=== PATIENT | female | born 1985 | race Caucasian/White ===

== ENCOUNTER → 2018-01-16 09:10 | Outpatient (CLI) | payer OTHER, MEDICAID, SELFPAY ==
--- NOTE | 2018-01-16 | DI.US.S_ITS ---
PROCEDURE: US OB <= 14 WEEKS FETUS INDICATIONS: DATES OUTSIDE/PRIOR DATING DATA: Last menstrual period (LMP): 11/21/17. LMP-based estimated date of delivery (GLORIA): 08/28/18. First dating scan (date and location): 01/16/18. Estimated date of delivery (GLORIA) from first dating scan: 09/02/18. TECHNIQUE: Real-time scanning was performed of the fetus and maternal pelvic organs, with image documentation. Endovaginal scanning was also performed to better visualize the fetus and maternal ovaries. COMPARISON: None. FINDINGS: Embryo: [place]-rump length measures 11 mm corresponding to 7 weeks 2 day. Embryonic heart rate measures 149 beats per minute. Measurement variability in dating: +/- 4 weeks by LMP, +/- 7 days by mean sac diameter (use before 6 weeks gestation if crown-rump length not able to be measured), +/- 5 days by crown-rump length (up to 8 weeks 6 days gestation), +/- 7 days by crown-rump length (up to 13 weeks 6 days gestation). Maternal organs: Ovaries within normal limits, with right corpus luteal cyst. Limited images through the kidneys demonstrate no hydronephrosis. IMPRESSION: 7 week 2 day single living IUP. Dictated by: Adolfo Camara RRA Interpreted: Leslye Suárez MD on 01/16/2018 at 10:21 Approved by: Leslye Suárez MD, PhD on 01/16/2018 at 11:54
== END ==
PROVIDERS: PCP Family Medicine; Visit Provider Family Medicine
DX: Z34.90 Encounter for supervision of normal pregnancy, unspecified, unspecified trimester (principal)
CPT/HCPCS: 76801; 76817

== ENCOUNTER 2018-03-27 10:54 | Inpatient (IN) | payer OTHER, MEDICAID, SELFPAY ==
[2018-03-27] MEDS: miSOPROStol 200 MCG TABLET 600 MCG VAG ×3 (12:04→21:35)
--- NOTE | 2018-03-27 12:14 | PM.HP.1 ---
History of Present Illness Date Patient Seen: 03/27/18 Time Patient Seen: 12:17 Chief complaint: demise Narrative: Patient is a 16 week demise. Patient had normal early without significant complications. Early ultrasounds looked normal. She had sequential screening which was unable to get adequate blood work and a [place] test which was borderline. Final diagnosis was trisomy 18. Better than not chance. While she was down discussing with [facility] ultrasound was done and found to be demise. Patient has had no bleeding no pain no leaking fluid no fevers chills or other change. Here for induction. Patient is previous . Past medical history depression anxiety. Past surgical history Social history y lives at home with daughter and new significant other. Habits occasional alcohol. No tobacco. Occasional marijuana. Review of systems otherwise negative Meds Home Medications Medication Instructions Recorded Confirmed Type ALBUTEROL SULFATE (Ventolin / 2 puff INH Q4H PRN #0 02/22/09 History Proventil) VIT#96/FERROUS FUM/FA 1 tab PO BID #0 10/16/12 History ( Vitamin) Allergies Allergy/AdvReac Type Severity Reaction Status Date / Time No Known Allergies Allergy Uncoded 07/10/17 11:47 Review of Systems Review of Systems All systems reviewed & are unremarkable except as noted in HPI and below Exam Vital Signs (past 8 hours): Alert female mildly sad appearance otherwise good eye contact. Lungs are clear. Heart regular rate and rhythm. Abdomen soft positive bowel sounds nontender. No heart tones. Extremities without cyanosis clubbing edema. Assessment & Plan Plan: Assessment/Plan Narrative: Sixteen week demise. Now 17 weeks with probable trisomy 18. Cytotec induction with an long discussions emotionally she seems to be doing okay right now will follow. OBGYN aware of situation and will be available to help if needed.
[2018-03-27 12:25] LABS: Add Manual Diff / Slide Review NO; Basophils Percent Auto 1.2 % (0-2); Eosinophils Percent Auto 10.2 % (2-4); Hematocrit 37.2 % (36-46); Hemoglobin 12.3 g/dL (12.0-16.0); Lymphocytes Percent Auto 29.3 % (25-40); Mean Corpuscular Volume 81.9 fL (80-100); Neutrophils Absolute Auto 3800 /uL (1500-7000); Neutrophils Percent Auto 52.3 % (50-75); Platelet Count 224 X10^3/uL (150-400); Red Blood Cell Count 4.55 X10^6/uL (4.0-5.2); Red Cell Distribution Width 12.9 % (11.6-14.8); White Blood Cell Count 7.3 X10^3/uL (4.5-11.0)
[2018-03-27 12:43] VITALS: BP 109/76
[2018-03-27] MEDS: LACTATED RINGERS 1,000 ML 100 ML IV (17:12)
--- NOTE | 2018-03-27 17:44 | PM.PN.1 ---
Subjective Date Patient Seen: 03/27/18 Time Patient Seen: 17:44 Interval history: Comfortable now. No other changes. Epidural is finally in. Difficulty picking up contractions. No other changes. Exam Vital Signs (past 8 hours): - 03/27/18 12:43 Blood Pressure 109/76 Narrative Exam Narrative: Alert female lying in bed no acute distress. Lungs are clear. Heart regular rate and rhythm. Abdomen is soft positive bowel sounds minimal tenderness. Sterile vaginal exam shows 50% closed high Objective Labs Result Diagrams: 03/27/18 11:05 Labs: Laboratory Results - last 24 hr 03/27/18 03/27/18 11:05 11:05 WBC 7.3 RBC 4.55 Hgb 12.3 Hct 37.2 MCV 81.9 MCH 27.0 MCHC 33.0 RDW 12.9 Plt Count 224 Neut % (Auto) 52.3 Lymph % (Auto) 29.3 [place] % (Auto) 7.0 Eos % (Auto) 10.2 H Baso % (Auto) 1.2 Neut # (Auto) 3800 Blood Type B Negative Antibody Screen Negative Assessment & Plan Plan: Assessment/Plan Narrative: Sixteen week demise. Continuing induction. Comfortable. No evidence of significant issue. Will follow closely. Recheck in 4 hr
[2018-03-27] MEDS: ONDANSETRON 4 MG/2 ML INJ IV (19:20)
[2018-03-27] MEDS: DEXTROSE 5%-LACTATED RINGERS 1,000 ML 125 ML IV (19:40)
[2018-03-27] MEDS: LORazepam 2 MG/ML SYRINGE 0.5 MG IV (22:39)
--- NOTE | 2018-03-28 | PATH_ITS ---
[facility] Accession Number: [id number] . 01 Material submitted: . RETAINED PRODUCTS OF CONCEPTION . 02 Diagnosis: Retained Products of Conception: Products of conception identified. V/04/03/2018 . 02 Electronically signed: . Alia Koch MD, Pathologist NPI- [id number] . 01 Gross description: . Received in formalin labeled with the patient's name and retained products of conception are multiple brown-serrato irregularly shaped soft tissues and blood, aggregating to 6.5 x 3.5 x 2.5 cm. Sectioning reveals spongy blood clot and purple spongy cut surfaces throughout. No parts are present. There are possible villous tissues present upon sectioning. Oracle Fusion Developer sections are submitted as A1 and A2. (SB:[id number]) /AMH . 02 Pathologist provided ICD-10: O73.1 . 02 CPT . 189326 Performed at: 01 [facility] [address] [facility], [place], [place] [id number] MD Jonathan Trujillo MD Phone: [phone] Performed at: 02 [facility] [address] [place], [place] [id number] MD Sylvia Waters MD Phone: [phone]
[2018-03-28] MEDS: miSOPROStol 100 MCG TABLET 600 MCG PO ×2 (02:00→06:01)
--- NOTE | 2018-03-28 08:24 | DI.US.S_ITS ---
PROCEDURE: US PELVIC LIMITED INDICATIONS: 16 week demise s/p delivery placental evaluation TECHNIQUE: Real-time transabdominal scanning was performed of the pelvic organs, with image documentation. COMPARISON: None. FINDINGS: Uterus: Uterus is normal in size at 4.8 x 5.8 x 11.0 cm. endometrial lining thickness is not effectively established due to echogenic material within the endometrial measuring up to 2.2 x 1.3 x 1.6 cm, consistent with retained products of conception and superimpos clot. Ovaries: The right ovary is normal in size measuring 1.8 x 2.4 x 3.1 cm and the left is not well-seen due to overlying bowel gas. Other: No free pelvic fluid. Limited scanning through the kidneys shows no hydronephrosis. IMPRESSION: Presumed retained products of conception within the endometrial space, in an area measuring up to 1.3 x 1.6 x 2.2 cm. Normal appearing right ovary, nonvisualization of the left ovary. No hemorrhagic peritoneal free fluid is suspected. Dictated by: Nick Erazo M.D. on 03/28/2018 at 10:10 Approved by: Nick Erazo M.D. on 03/28/2018 at 10:12
--- NOTE | 2018-03-28 08:31 | PM.PN.1 ---
Subjective Date Patient Seen: 03/28/18 Time Patient Seen: 08:31 Interval history: Having no patient seen in follow-up of demise. Patient with okay night. Emotionally stressed. Nauseated. No significant drying rack changer the night. No bleeding no leaking fluid no other change. That was noted. Exam Vital Signs (past 8 hours): Alert female in no acute distress crying in bed. Lungs are clear. Heart regular rate and rhythm. Abdomen is soft positive bowel sounds epidural in place sterile vaginal exam shows moderate amount of blood 1 cm cervix. No palpable mass. Shortly after check a bag with infant was delivered. No active bleeding. Objective Labs Result Diagrams: 03/27/18 11:05 Labs: Laboratory Results - last 24 hr 03/27/18 03/27/18 11:05 11:05 WBC 7.3 RBC 4.55 Hgb 12.3 Hct 37.2 MCV 81.9 MCH 27.0 MCHC 33.0 RDW 12.9 Plt Count 224 Neut % (Auto) 52.3 Lymph % (Auto) 29.3 [place] % (Auto) 7.0 Eos % (Auto) 10.2 H Baso % (Auto) 1.2 Neut # (Auto) 3800 Blood Type B Negative Antibody Screen Negative Assessment & Plan Plan: Assessment/Plan Narrative: Sixteen week demise. Appears to have passed infant with sac no placenta. Discussed with Dr. Mistry. Will send for genetic testing. Will start antibiotics. Will start Pitocin at 6 units and obtain ultrasound. If await hopefully will pass if not will need D&C. We will see what the ultrasound shows. Patient understands. Seems to be doing well.
--- NOTE | 2018-03-28 08:38 | PATH_ITS ---
[facility] Accession Number: [id number] . 01 Material submitted: . PRODUCTS OF CONCEPTION . 02 Diagnosis: Products of Conception: Male fetus by gross examination (weight 35 grams). [place]-rump length of 8.6 cm by gross examination, consistent with approximately 14.5 weeks gestational age. Poor tissue preservation limits microscopic examination. No definite inflammatory component identified in the membranes or cord tissue sections. MRV/04/03/2018 . 02 Electronically signed: . Alia Koch MD, Pathologist NPI- [id number] . 01 Gross description: . Received in formalin, labeled with the patient's name and products of conception, is a 45 g, 9.0 x 6.0 x 2.0 cm, discoid, purple-brown, glistening soft tissue. This tissue is grossly consistent with an intact gestational sac. The membranes are brown-serrato, thin, and translucent. Opening this reveals brown, watery fluid and a fetus. The fetus is 35 g. The fetus has the following measurements: [place]-rump length is 8.6 cm, and the crown-heel length is 11.8 cm. Each hand averages 1.0 cm in length and the feet average 1.1 cm in length. The skin is red-pink, dusky, with focal congestion around the head. The eyes and the mouth are shut. The membranes are focally adherent to the skin surfaces. Opening the mouth does not reveal a cleft palate. All 10 fingers and all 10 toes are present. At the abdomen is a 5.0 x 0.3 x 0.2 cm, serrato-pink, dusky umbilicus. Sectioning of the umbilical cord reveals an indeterminate amount of blood vessels due to its small diameter. The anus is patent. The external genitalia are male. The fetus is opened in a Y incision. Opening reveals all of the organs are in their correct anatomical locations. Many of the organs are autolyzed. Due to fact that the organs are autolyzed, the gonads cannot be grossly identified. Onshore Diver sections are submitted as follows: (A1) membranes and umbilical cord; (A2) advertising sales representative organs and a section through several of the organs. (SB:[id number]) (SB:[id number]) /FRR . 02 Pathologist provided ICD-10: O02.1 . 02 CPT . 307564 Performed at: 01 [facility] [address] [place] [address], [place], [place] [id number] MD Jonathan Trujillo MD Phone: [phone] Performed at: 02 [facility] [address] [place] [id number] MD Sylvia Waters MD Phone: [phone]
[2018-03-28] MEDS: OXYTOCIN PREMIX 30 UNIT/500 ML PLAST..BAG 6 UNIT IV (08:51)
[2018-03-28] MEDS: DEXTROSE 5%-LACTATED RINGERS 1,000 ML 125 ML IV ×2 (08:51→09:49)
[2018-03-28] MEDS: CEFOTETAN 2 GM/50 ML PIGGYBACK IV (09:16)
[2018-03-28] MEDS: ONDANSETRON 4 MG/2 ML INJ IV (09:59)
--- NOTE | 2018-03-28 13:36 | PM.PN.1 ---
Subjective Date Patient Seen: 03/28/18 Time Patient Seen: 13:36 Interval history: Ultrasound shows still with product of conception. No passing of any tissue. Moderate bleeding but no thin significant. Pain is well controlled with epidural. Pitocin has been running. No other changes. Exam Vital Signs (past 8 hours): Alert female no acute distress Lungs are clear. Heart regular rhythm. Abdomen is soft positive bowel sounds nontender. Objective Labs Result Diagrams: 03/27/18 11:05 Assessment & Plan Plan: Assessment/Plan Narrative: A 16 week intrauterine demise. Unable to extract placenta. Due to the amount of medication and emotional impact will proceed with D&C with Dr. Mistry appreciate his help. Discussed with patient risks expectations and outcomes. Hopefully will be able go home later today.
[2018-03-28 19:30] VITALS: BMI 34.1
[2018-03-28 19:35] VITALS: BP 128/78; PULSE 74; RESP 16; TEMP 36.6; O2SAT 96
[2018-03-28 19:37] VITALS: BMI 34.1
[2018-03-28 20:05] VITALS: BP 112/71; PULSE 80; RESP 20; TEMP 36.6; O2SAT 97
[2018-03-28] MEDS: RHO(D) IMMUNE GLOBULIN 1,500 UNIT SYRINGE 1500 UNIT IM (20:08)
--- NOTE | 2018-03-28 20:11 | SUR.OPER ---
Lithotomy on padded OR bed, head on pillow, arms secured on padded arm boards at <90 degrees abduction. Legs secured in padded yellow fins stirrups.
[2018-03-28 20:12] VITALS: BP 128/69; PULSE 76; RESP 12; O2SAT 98
[2018-03-28 20:15] VITALS: BP 118/78; PULSE 76; RESP 15; O2SAT 97
--- NOTE | 2018-03-28 20:17 | PM.GYNOP.1 ---
Operative Date/Time/Diagnoses Date of procedure: 03/28/18 Time of procedure: 20:17 Pre-op diagnosis: Incomplete /retained products of conception Post-op diagnosis: same Procedure: Procedures Operation Date: 03/28/18 18:30 Actual Procedures Side Surgeon p Dilation and Curettage Robby Mistry MD Indications: Retained products of conception Surgeon: Robby Mistry Anesthesia Type: General Operative Notes Closure Type: not applicable Specimen(s): endometrial curettings Estimated blood loss (mL): 25 Blood products transfused: none Procedure in detail: Patient was placed supine upon the operating table in S the ties. She was placed in the dorsal lithotomy position examined under anesthesia. Under anesthesia she was felt of an anterior uterus approximately 6-8 week size. Patient was then draped and prepared in the usual fashion. A posterior weighted retractor was then placed. The anterior lip of the cervix was grasped with a toothed tenaculum. The placenta was in the cervical os and removed with a ring forceps. Gentle curettage remainder of the endometrial cavity showed no remaining tissue. Complications: none Post-operative Condition: stable Disposition: PACU Plan for aftercare: 2 [place]
[2018-03-28 20:20] VITALS: BP 117/67; RESP 16; TEMP 36.8; O2SAT 99
== END 2018-03-28 20:45 | disposition home or self-care (01) | DRG 544 ==
PROVIDERS: Admitting Provider Family Medicine; Visit Provider Family Medicine
PROC: 10D17Z9 Manual Extraction of Products of Conception, Retained, Via Natural or Artificial Opening (ICD-10-PCS; CPT 58120; principal; 2018-03-28 18:30)
DX: O02.1 Missed abortion (principal); O03.4 Incomplete spontaneous abortion without complication
CPT/HCPCS: 01967; 59200; 76857; 85025; 86850; 86900; 86901; 88305; G0379; J2060; J2405; J2590; J2704; J2790; J3010; J7121; S0191

== ENCOUNTER → 2018-06-10 09:58 | Outpatient (CLI) | payer OTHER, MEDICAID, SELFPAY ==
--- NOTE | 2018-06-10 | DI.RAD.S_ITS ---
PROCEDURE: XR CHEST 2V INDICATIONS: COUGH TECHNIQUE: 2 views of the chest were acquired. COMPARISON: None. FINDINGS: Surgical changes and devices: None. Lungs and pleura: Lungs are clear. No pleural effusions or pneumothorax. Mediastinum: Mediastinal contours are normal. Heart size is normal. Bones and chest wall: No suspicious bony abnormalities. Soft tissues appear unremarkable. IMPRESSION: No acute disease Dictated by: Bob Valdez M.D. on 06/10/2018 at 11:27 Approved by: Bob Valdez M.D. on 06/10/2018 at 11:28
== END ==
PROVIDERS: PCP Family Medicine; Visit Provider Nurse Practitioner Family
DX: R05 Cough (principal); J45.901 Unspecified asthma with (acute) exacerbation
CPT/HCPCS: 71046

== ENCOUNTER → 2018-08-12 08:40 | Outpatient (CLI) | payer OTHER, MEDICAID, SELFPAY ==
--- NOTE | 2018-08-12 | DI.US.S_ITS ---
PROCEDURE: US OB <= 14 WEEKS FETUS INDICATIONS: INITIAL SIZING AND DATING OUTSIDE/PRIOR DATING DATA: Last menstrual period (LMP): 06/25/18. LMP-based estimated date of delivery (GLORIA): 04/01/19. First dating scan (date and location): 08/12/18, [facility]. Estimated date of delivery (GLORIA) from first dating scan: 04/02/19. TECHNIQUE: Real-time scanning was performed of the fetus and maternal pelvic organs, with image documentation. Endovaginal scanning was also performed to better visualize the fetus and maternal ovaries. COMPARISON: [facility], , OB <= 14 WEEKS FETUS, 01/16/2018, 9:46. FINDINGS: Embryo: A single live intrauterine is seen. The measured heart rate is 124 beats per minute. The crown-rump length measures 0.8 mm cm, corresponding to an estimated gestational age of 6 weeks 5 days. It is too early for detailed anatomic assessment. By visual inspection, the amount of amniotic fluid is within normal limits. No significant findings of subchorionic/perigestational hemorrhage are seen. Measurement variability in dating: +/- 4 weeks by LMP, +/- 7 days by mean sac diameter (use before 6 weeks gestation if crown-rump length not able to be measured), +/- 5 days by crown-rump length (up to 8 weeks 6 days gestation), +/- 7 days by crown-rump length (up to 13 weeks 6 days gestation). Maternal organs: The right ovary demonstrates a corpus luteum. The left ovary was not seen. IMPRESSION: A single live intrauterine is seen. No significant discrepancy is found between the estimated gestational age based on these images and the estimated gestational age based upon the given date of the last menstrual period. Dictated by: Floyd Mata M.D. on 08/12/2018 at 9:52 Approved by: Floyd Mata M.D. on 08/12/2018 at 9:55
== END ==
PROVIDERS: PCP Family Medicine; Visit Provider Family Medicine
DX: Z34.91 Encounter for supervision of normal pregnancy, unspecified, first trimester (principal); Z3A.01 Less than 8 weeks gestation of pregnancy
CPT/HCPCS: 76801; 76817

== ENCOUNTER 2018-08-15 10:59 | Observation (INO) | payer OTHER, MEDICAID, SELFPAY ==
[2018-08-15] MEDS: LACTATED RINGERS 1,000 ML 1000 ML IV ×2 (11:35→12:30)
[2018-08-15] MEDS: ONDANSETRON 4 MG/2 ML INJ IV (11:35)
--- NOTE | 2018-08-15 13:02 | PM.OBTRLD ---
Visit Information Visit Information Date of evaluation: 08/15/18 Primary OB Provider: Robby Stephenson Reason for Evaluation: Yes other Comments/Additional reasons for admission: Patient is 7 weeks and has had significant problems with hyperemesis gravidarum. Failed B12 and doxylamine, also outpatient Zofran. Not able to keep anything down. Decreased urinary output. Dizziness lightheaded. No bleeding. No other changes. PFSH Social History household members: significant other Smoking Status: Current some day smoker Social History household members: significant other Smoking Status: Current some day smoker Exam Narrative Exam Narrative: Alert fatigued female throwing up consistently throughout exam in no acute distress Diagnosis, Plan/Disposition Plan/Disposition Plan: Hyperemesis gravidarum. IV hydration IV Zofran will switch to Reglan she will call me tomorrow.
== END 2018-08-15 13:40 | disposition home or self-care (01) ==
PROVIDERS: Admitting Provider Family Medicine; PCP Family Medicine; Visit Provider Family Medicine
DX: O21.0 Mild hyperemesis gravidarum (principal); Z3A.01 Less than 8 weeks gestation of pregnancy
CPT/HCPCS: 96360; G0378; G0379; J2405

== ENCOUNTER 2018-09-09 17:38 | Emergency (ER) | payer OTHER, MEDICAID, SELFPAY ==
[2018-09-09 17:45] VITALS: BP 134/86; PULSE 93; RESP 14; TEMP 36.8; O2SAT 98
[2018-09-09] MEDS: SODIUM CHLORIDE 0.9% 1,000 ML 1000 ML IV ×2 (17:53→18:53)
[2018-09-09] MEDS: ONDANSETRON 4 MG/2 ML INJ IV (17:53)
[2018-09-09 17:55] LABS: Add Manual Diff / Slide Review NO; Basophils Absolute Auto 100 /uL (0-100); Basophils Percent Auto 0.6 % (0-2); Eosinophils Absolute Auto 300 /uL (0-450); Eosinophils Percent Auto 3.5 % (2-4); Hematocrit 36.2 % (36-46); Hemoglobin 12.5 g/dL (12.0-16.0); Lymphocytes Absolute Auto 2300 /uL (1100-4500); Lymphocytes Percent Auto 24.9 % (25-40); Mean Corpuscular HGB Conc 34.5 % (30-36); Mean Corpuscular Hemoglobin 27.4 PG (26-34); Mean Corpuscular Volume 79.4 fL (80-100); Monocytes Absolute Auto 400 /uL (0-900); Monocytes Percent Auto 4.8 % (3-14); Neutrophils Absolute Auto 6000 /uL (1500-7000); Neutrophils Percent Auto 66.2 % (50-75); Platelet Count 224 X10^3/uL (150-400); Red Blood Cell Count 4.56 X10^6/uL (4.0-5.2); Red Cell Distribution Width 14.2 % (11.6-14.8); White Blood Cell Count 9.1 X10^3/uL (4.5-11.0)
[2018-09-09 18:06] LABS: Blood Urea Nitrogen 9 mg/dL (7-17); Calcium 9.1 mg/dL (8.4-10.2); Carbon Dioxide 23 mmol/L (22-32); Chloride 101 mmol/L (98-107); Estimated Glomerular Filt Rate > 60.0 mL/min (>60); Glucose 100 mg/dL (70-100); HEMOLYSIS < 15 (0-50); Potassium 3.8 mmol/L (3.4-5.1); Sodium 134 mmol/L (137-145)
[2018-09-09 18:09] LABS: Ketones (Beta-Hydroxybutyrate) 0.35 mmol/L (<0.27)
--- NOTE | 2018-09-09 18:38 | ED_ITS ---
HPI - Nausea/Vomiting/Diarrhea General Chief complaint: Nausea/Vomiting/Diarrhea Stated complaint: SENT FROM MD FOR FLUIDS Time Seen by Provider: 09/09/18 17:44 Source: patient and old records reviewed Mode of arrival: ambulatory Limitations: no limitations History of Present Illness HPI Narrative: Patient is a 33-year-old female currently 11 weeks presenting with nausea vomiting. She has had hyperemesis gravidarum during this and has been admitted at 7 weeks for the same. She has Zofran at home she failed B12 and doxylamine, in the past. She says 2 days ago she started not feeling well. At which time she tries to drink she immediately vomits. She has urinated about to RO today. Overall not feeling good. No abdominal pain no vaginal bleeding. MD complaint: nausea and vomiting Description of Vomiting: watery Description of Diarrhea: none Related Data Home Medications Medication Instructions Recorded Confirmed ALBUTEROL SULFATE (Ventolin / 2 puff INH Q4H PRN PRN #0 02/22/09 03/27/18 Proventil) VIT#96/FERROUS FUM/FA 1 tab PO BID #0 10/16/12 03/27/18 ( Vitamin) Previous Rx's Medication Instructions Recorded amoxicillin 500 mg PO TID 7 Days #21 cap 09/09/18 Allergies Allergy/AdvReac Type Severity Reaction Status Date / Time No Known Drug Allergies Allergy Verified 09/09/18 17:45 Review of Systems Review of Systems ROS Unobtainable: All systems reviewed & are unremarkable except as noted in HPI and below Constitutional Denies chills, Denies fever(s), Denies lethargy and Denies weakness ENT Ears, Nose, Mouth, and Throat: Denies change in voice, Denies neck pain and Denies sore throat Cardiovascular Denies chest pain, Denies irregular heart rhythm, Denies lightheadedness, Denies palpitations, Denies dyspnea, Denies dyspnea on exertion and Denies orthopnea Respiratory Denies cough, Denies dyspnea, Denies dyspnea on exertion and Denies wheezing Gastrointestinal Gastrointestinal: Reports as per HPI Genitourinary Denies hematuria, Denies flank pain, Denies urinary incontinence and Denies urinary urgency Musculoskeletal Denies neck pain Integumentary/Breasts Denies pruritus, Denies erythema, Denies rash and Denies wounds Neurologic Denies weakness Endocrine Denies palpitations Allergic/Immunologic Denies wheezing [facility] Medical History Hyperemesis gravidarum (Acute) Social History household members: significant other Smoking Status: Current some day smoker Social History household members: significant other Smoking Status: Current some day smoker Exam Initial Vital Signs Initial Vital Signs: Vital Signs Temperature 98.3 F 09/09/18 17:45 Pulse Rate 93 H 09/09/18 17:45 Respiratory Rate 14 09/09/18 17:45 Blood Pressure 134/86 09/09/18 17:45 Pulse Oximetry 98 09/09/18 17:45 GENERAL: Well-appearing, well-nourished and in no acute distress. HEENT: Head atraumatic,EOMI, pupils reactive, face symmetric, moist mucous membranes CARDIOVASCULAR: Regular rate and rhythm without murmurs, rubs or gallops. RESPIRATORY: Breath sounds equal bilaterally, no wheezes rales or rhonchi. ABDOMEN: Soft, nontender. Normoactive bowel sounds all 4 quadrants. No guarding or rebound. : No CVA tenderness EXTREMITIES: Normal range of motion, no clubbing or edema. Neurovascularly intact NEUROLOGICAL: Alert and oriented x4.Normal gait and speech. SKIN: Warm, dry, no laceration, no petechiae, no rashes or lesions. Course Orders Ordered: ED Orders 09/09/18 17:45 Basic Metabolic Panel Stat Complete Blood Count AUTO DIFF Stat Ketones (Beta-Hydroxybutyrate) Stat 09/09/18 19:30 Urinalysis and Microscopic Stat Urine Culture Stat Discontinued Medications Sodium Chloride (Normal Saline 0.9%) 1,000 mls @ 1,000 mls/hr IV BOLUS ONE Stop: 09/09/18 18:43 Last Infusion: 09/09/18 18:48 Dose: 0 mls/hr Admin: 09/09/18 17:53 Dose: 1,000 mls/hr Sodium Chloride (Normal Saline 0.9%) 1,000 mls @ 1,000 mls/hr IV BOLUS ONE Stop: 09/09/18 19:20 Last Infusion: 09/09/18 19:51 Dose: 1,000 mls/hr Admin: 09/09/18 18:53 Dose: 1,000 mls/hr Ondansetron HCl (Zofran) 4 mg IV Q4HR PRN PRN Reason: Nausea And Vomiting Last Admin: 09/09/18 17:53 Dose: 4 mg Vital Signs - 8 hr 09/09/18 20:10 Pulse Rate 88 Respiratory Rate 16 Blood Pressure 133/81 Pulse Oximetry 97 MDM - Nausea/Vomiting/Diarrhea Lab Data Attestation: I reviewed the patient's lab results. Result diagrams: 09/09/18 17:45 09/09/18 17:45 Lab Results 09/09/18 09/09/18 09/09/18 Range/Units 17:45 17:45 19:30 WBC 9.1 (4.5-11.0) X10^3/uL RBC 4.56 (4.0-5.2) X10^6/uL Hgb 12.5 (12.0-16.0) g/dL Hct 36.2 (36-46) % MCV 79.4 L (80-100) fL MCH 27.4 (26-34) PG MCHC 34.5 (30-36) % RDW 14.2 (11.6-14.8) % Plt Count 224 (150-400) X10^3/uL Neut % (Auto) 66.2 (50-75) % Lymph % (Auto) 24.9 L (25-40) % [place] % (Auto) 4.8 (3-14) % Eos % (Auto) 3.5 (2-4) % Baso % (Auto) 0.6 (0-2) % Neut # (Auto) 6000 (4366-5907) /uL Lymph # (Auto) 2300 (9922-4991) /uL [place] # (Auto) 400 (0-900) /uL Eos # (Auto) 300 (0-450) /uL Baso # (Auto) 100 (0-100) /uL Sodium 134 L (137-145) mmol/L Potassium 3.8 (3.4-5.1) mmol/L Chloride 101 (98-107) mmol/L Carbon Dioxide 23 (22-32) mmol/L BUN 9 (7-17) mg/dL Creatinine 0.50 L (0.52-1.04) mg/dL Estimated GFR > 60.0 (>60) mL/min BUN/Creatinine Ratio 18.0 (6-22) Glucose 100 (70-100) mg/dL Calcium 9.1 (8.4-10.2) mg/dL Urine Color Yellow Urine Appearance Clear Urine pH 6.5 (4.5-8.0) Ur Specific [place] 1.020 (1.000-1.035) Urine Protein Negative (Negative) Urine Glucose (UA) Negative (Negative) g/dL Urine Ketones Negative (NEGATIVE) Urine Occult Blood Trace-intact (Negative) Urine Nitrate Negative (Negative) Urine Bilirubin Negative (NEGATIVE) Urine Urobilinogen 0.2 (0.2) E.U./dL Ur Leukocyte Esterase 2+ H (NEGATIVE) Urine RBC 0-1/hpf (0-5/HPF) Urine WBC 10-30/hpf H (0-5/HPF) Ur Squamous Epith Cells 1-5 /hpf (0-5/HPF) Ur Transition Epith Cell 1-5/hpf (0-5/HPF) Urine Bacteria Few (2-10) H (None) Ur Culture Indicated? Specimen cultured Ketones 0.35 H (<0.27) mmol/L MDM Narrative Medical decision making narrative: Patient is tolerating oral fluids. Overall appears much better. She has leukocytosis in her urine and small amount of ba stephan will treat her for a UTI. She states she has Zofran at home. Discharge Plan Departure Patient Disposition: Home Clinical Impression: Hyperemesis gravidarum UTI (urinary tract infection) during Qualifiers: Trimester: first trimester Qualified Code(s): O23.41 - Unspecified infection of urinary tract in , first trimester Discharge Date/Time: 09/09/18 20:10 Interventions: ED Discharge Assessment Last Done: 09/09/18 20:10 Instructions: Hyperemesis Gravidarum, DI for Urinary Tract Infection (UTI) Activity Restrictions/Additional Instructions: *You have been diagnosed with hyperemesis gravidarum and UTI *What to do: Increased fluid as tolerated *Continue to take medications as directed [id number] mg 3 times a day *Follow up with your primary care provider in 2-3 days *Return to ER if you should have inability to tolerate fluids, fever, increasing abdominal pain vaginal bleeding or any new, worsening or concerning symptoms Prescriptions: New amoxicillin 500 mg capsule 500 mg PO TID 7 Days Qty: 21 RF: 0 No Action ALBUTEROL SULFATE (Ventolin / Proventil) inhaler 2 puff INH Q4H PRN PRN (Reason: Shortness Of Breath) Qty: 0 RF: 0 VIT#96/FERROUS FUM/FA ( Vitamin) 1 tab PO BID Qty: 0 RF: 0 Referrals: Robby Stephenson MD [Primary Care Provider] -
[2018-09-09 19:43] LABS: Appearance Urine UA CLEAR; Bilirubin Urine UA NEGATIVE (NEGATIVE); Color Urine UA YELLOW; Glucose Urine UA NEGATIVE (Negative); Ketones Urine UA NEGATIVE (NEGATIVE); Leukocyte Esterase Urine UA 2+ (NEGATIVE); Nitrite Urine UA NEGATIVE (Negative); Occult Blood Urine UA TRACE-INTACT (Negative); Protein Urine UA NEGATIVE (Negative); Urobilinogen Urine UA 0.2 E.U./dL (0.2); pH Urine UA 6.5 (4.5-8.0)
[2018-09-09 19:54] LABS: Bacteria Urine Few (2-10); Culture Indicated Urine Specimen Cultured; RBC Urine 0-1/HPF (0-5/HPF); Squamous Epithelial Cell Urine 1-5 /HPF (0-5/HPF); Transitional Epi Cells Urine 1-5/HPF (0-5/HPF); WBC Urine 10-30/HPF (0-5/HPF)
--- NOTE | 2018-09-09 20:08 | PC.NURSE ---
Pt reports 11 weeks , with nausea and vomiting for past 2 days took zofran without relief. Has hx of hyperemesis during this and has been admitted at 7 weeks for the same. Denies fever, abdominal pain and states no vaginal bleeding.
[2018-09-09 20:10] VITALS: BP 133/81; PULSE 88; RESP 16; O2SAT 97
== END 2018-09-09 20:10 | disposition home or self-care (01) ==
PROVIDERS: Emergency Medicine; Emergency Provider Emergency Medicine; Family Provider Family Medicine; PCP Family Medicine
DX: O21.0 Mild hyperemesis gravidarum (principal); O23.41 Unspecified infection of urinary tract in pregnancy, first trimester; Z3A.11 11 weeks gestation of pregnancy
CPT/HCPCS: 36591; 80048; 81001; 82009; 85025; 87086; 96361; 96374; 99283; 99284; J2405

== ENCOUNTER → 2018-09-16 10:23 | Outpatient (CLI) | payer OTHER, MEDICAID, SELFPAY ==
--- NOTE | 2018-09-16 | DI.US.S_ITS ---
PROCEDURE: US OB <= 14 WEEKS FETUS INDICATIONS: ABSENT FHT'S OUTSIDE/PRIOR DATING DATA: Last menstrual period (LMP): 06/25/18. LMP-based estimated date of delivery (GLORIA): 04/01/19. First dating scan (date and location): 08/12/18. Estimated date of delivery (GLORIA) from first dating scan: 04/02/19. TECHNIQUE: Real-time scanning was performed of the fetus and maternal pelvic organs, with image documentation. Endovaginal scanning was also performed to better visualize the fetus and maternal ovaries. COMPARISON: [facility], OB <= 14 WEEKS FETUS, 08/12/2018, 8:59. FINDINGS: Embryo: Shidler-rump length measures 4.8 cm corresponding to 11 weeks 4 days. Embryonic heart rate measured at 162 beats per minute. Measurement variability in dating: +/- 4 weeks by LMP, +/- 7 days by mean sac diameter (use before 6 weeks gestation if crown-rump length not able to be measured), +/- 5 days by crown-rump length (up to 8 weeks 6 days gestation), +/- 7 days by crown-rump length (up to 13 weeks 6 days gestation). Maternal organs: Ovaries are not identified. No adnexal masses seen. Limited images through the kidneys demonstrate no hydronephrosis. IMPRESSION: Single living IUP redemonstrated and interval growth is normal with ultrasound GLORIA of 04/02/19. Dictated by: Adolfo CORONADO Interpreted: Phil Chavez MD on 09/16/2018 at 12:02 Approved by: Phil Chavez M.D. on 09/17/2018 at 9:49
== END ==
PROVIDERS: PCP Family Medicine; Visit Provider Family Medicine
DX: Z36.89 Encounter for other specified antenatal screening (principal); Z3A.11 11 weeks gestation of pregnancy
CPT/HCPCS: 76801

== ENCOUNTER → 2018-11-06 12:09 | Outpatient (CLI) | payer OTHER, MEDICAID, SELFPAY ==
--- NOTE | 2018-11-06 | DI.US.S_ITS ---
PROCEDURE: US OB >= 14 WEEKS FETUS INDICATIONS: ANATOMY OUTSIDE/PRIOR DATING DATA: Last menstrual period (LMP): 06/25/18. LMP-based estimated date of delivery (GLORIA): 04/01/19. First dating scan (date and location): 08/12/18. Estimated date of delivery (GLORIA) from first dating scan: 04/02/19.. TECHNIQUE: Real-time scanning was performed of the fetus, with image documentation and biometric measurements. Endovaginal scanning: No COMPARISON: [facility], OB <= 14 WEEKS FETUS, 09/16/2018, 10:37. FINDINGS: General: A single living intrauterine gestation is present. Presentation: Breech. Placenta: Placental position is anterior, without previa. Amniotic fluid index: 15.3 cm, normal range is 5-24 cm. heart rate: 144 beats per minute. Maternal cervical canal: 3.1 cm long. Normal lower limit is 2.5 cm. biometrics: Biparietal diameter: 19 weeks 4 days Head circumference: 19 weeks 3 days Abdominal circumference: 19 weeks 3 days Femur length: 19 weeks 5 days Estimated gestational age from initial scan: 19 weeks 1 day Composite gestational age from present scan: 19 weeks 4 days Estimated weight and percentile: 301 g; 79 percentile Measurement variability for biometric dating: +/- 7 days from 14 weeks to 15 weeks 6 days gestation, +/- 10 days from 16 weeks to 21 weeks 6 days gestation, +/- 2 weeks from 22 weeks to 27 weeks 6 days gestation, +/- 3 weeks for 28 weeks gestation or later. weight reference: 4500 g or EFW >90/95% is considered macrosomia or large for gestational age. EFW <10% is small for gestational age. EFW 5% or less is considered intra-uterine growth restriction. Anatomic survey: Neuro: Ventricles are non-dilated at less than 10 mm. Cisterna magna is normal at 3-11 mm. Cerebellum is normal in size and morphology. Nuchal skin fold: Normal at less than 6 mm between 14-21 weeks gestational age. Face: Nose and lips, facial profile are normal. Spine: No evidence for spina bifida. Heart: Normal four-chamber heart and LVOT. RVOT suboptimally visualized. Diaphragm: Diaphragm is intact. Stomach: Left-sided stomach is present. Kidneys: No hydronephrosis. Normal is less than 5 mm in 2nd trimester, less than 7 mm in 3rd trimester. Cord: 3-vessel cord has orthotopic insertion. Bladder: Normal in size. Extremities: All 4 extremities identified. IMPRESSION: 1. Single living IUP redemonstrated and interval growth is normal. 2. RVOT not well-visualized; otherwise normal anatomic survey. Dictated by: Adolfo Camara [facility] Interpreted: Bob Valdez MD on 11/06/2018 at 13:12 Approved by: Bob Valdez M.D. on 11/06/2018 at 14:57
== END ==
PROVIDERS: PCP Family Medicine; Visit Provider Family Medicine
DX: Z34.92 Encounter for supervision of normal pregnancy, unspecified, second trimester (principal); Z3A.19 19 weeks gestation of pregnancy
CPT/HCPCS: 76811

== ENCOUNTER → 2019-01-26 12:09 | Outpatient (CLI) | payer OTHER, MEDICAID, SELFPAY ==
--- NOTE | 2019-01-26 | DI.US.S_ITS ---
PROCEDURE: US OB FOLLOW UP INDICATIONS: FOLLOW-UP RVOT OUTSIDE/PRIOR DATING DATA: Last menstrual period (LMP): 06/25/18. LMP-based estimated date of delivery (GLORIA): 04/01/19. First dating scan (date and location): 08/12/18. Estimated date of delivery (GLORIA) from first dating scan: 04/02/19.. TECHNIQUE: Real-time scanning was performed of the fetus, with image documentation and biometric measurements. Endovaginal scanning: No COMPARISON: [facility], OB >= 14 WEEKS FETUS, 11/06/2018, 12:18. FINDINGS: General: A single living intrauterine gestation is present. Presentation: 3. Placenta: Placental position is fundal, without previa. Amniotic fluid index: 22.8 cm, normal range is 5-24 cm. heart rate: 132 beats per minute. Maternal cervical canal: 3.4 cm long. Normal lower limit is 2.5 cm. Estimated gestational age from initial scan: 30 weeks 4 days Normal heart. IMPRESSION: 1. Single living IUP redemonstrated in today's exam demonstrating normal appearance of the four-chamber heart and cardiac outflow tracts. Dictated by: Adolfo Camara RRA Interpreted: Leslye Suárez MD on 01/26/2019 at 16:06 Approved by: Leslye Suárez MD, PhD on 01/26/2019 at 16:47
== END ==
PROVIDERS: PCP Family Medicine; Visit Provider Family Medicine
DX: Z36.2 Encounter for other antenatal screening follow-up (principal); Z3A.30 30 weeks gestation of pregnancy
CPT/HCPCS: 76816

== ENCOUNTER 2019-02-27 13:29 | Observation (INO) | payer OTHER, MEDICAID, SELFPAY ==
[2019-02-27] MEDS: NIFEdipine 10 MG CAPSULE PO ×4 (14:19→15:22)
[2019-02-27 15:19] LABS: Strep Grp B PCR NEG for Grp B Strep
--- NOTE | 2019-02-27 16:11 | PM.OBTRLD ---
Visit Information Visit Information Date of evaluation: 02/27/19 Primary OB Provider: Robby Stephenson On-call OB Provider: Theresa Seymour Reason for Evaluation: Yes rule out labor Vital Signs Vital Signs: Blood pressure 131/81, pulse of 86, temperature 36.6? [facility] Social History household members: significant other Smoking Status: Current some day smoker Review of Systems Review of Systems Narrative: Patient denies any vaginal bleeding or leakage of fluid. She has been having regular painful contractions. She feels a lot of pelvic pressure. No headaches or scotomata. No epigastric pain she states she has been having good movement. ROS Unobtainable: All systems reviewed & are unremarkable except as noted in HPI and below Exam Narrative Exam Narrative: Patient's abdomen is soft, nontender. Infant is confirmed vertex by ultrasound. Extremities without edema and nontender Objective Labs Labs: Laboratory Results - last 24 hr 02/27/19 14:05 Group B Strep (PCR) Neg for grp b strep Evaluation Evaluation Baseline heart rate: 130 Variability: Moderate (11-25) monitor accelerations: Present monitor decelerations: Absent Contraction Frequency (minutes): 2 Uterine Contraction Intensity: Mild Category of Tracing: I Cervical dilation (cm): 0 Cervical effacement (%): 50 station: -3 Laboratory results: Laboratory Tests 02/27/19 14:05 Group B Strep (PCR) Neg for grp b strep Diagnosis, Plan/Disposition Final Diagnosis (1) Premature uterine contractions: Current Visit: Yes Status: Acute (2) 35 weeks gestation of : Current Visit: Yes Status: Acute Plan/Disposition Plan: Patient with contractions that did not resolve with nifedipine. Patient with no significant change in her cervix. Routine precautions reviewed with the patient. She lives close to the hospital return if she has any concerns with rupture membranes, increasing abdominal pain, bleeding, decreased movement. OB Disposition: home
== END 2019-02-27 16:52 | disposition home or self-care (01) ==
PROVIDERS: Specialist; Admitting Provider Family Medicine; PCP Family Medicine; Visit Provider Family Medicine
DX: O60.03 Preterm labor without delivery, third trimester (principal); Z3A.35 35 weeks gestation of pregnancy
CPT/HCPCS: 59025; 59050; 76815; 87081; 87653; G0378; G0379

== ENCOUNTER 2019-03-02 10:00 | Observation (INO) | payer OTHER, MEDICAID, SELFPAY ==
--- NOTE | 2019-03-02 10:44 | DI.US.S_ITS ---
PROCEDURE: US OB LIMITED INDICATIONS: ROSLYN, EFW, PLACENTA OUTSIDE/PRIOR DATING DATA: Last menstrual period (LMP): 06/25/18. LMP-based estimated date of delivery (GLORIA): 04/01/19. First dating scan (date and location): 08/12/18, [facility] Estimated date of delivery (GLORIA) from first dating scan: 04/02/19. TECHNIQUE: Real-time scanning was performed of the fetus, with image documentation and biometric measurements. Endovaginal scanning: Not performed COMPARISON: [facility], OB >= 14 WEEKS FETUS, 11/06/2018, 12:18. [facility] OB FOLLOW UP, 01/26/2019, 12:25. FINDINGS: General: A single living intrauterine gestation is present. Presentation: Vertex. Placenta: Placental position is anterior and fundal without previa Amniotic fluid index: 20.2 cm, normal range is 5-24 cm. largest pocket 6.5 cm heart rate: 140 beats per minute. Maternal cervical canal: Nonvisualized at late stage of . biometrics: Biparietal diameter: 9.0 cm, 36 weeks 2 days Head circumference: 34.0 cm, 39 weeks zero days Abdominal circumference: 33.1 cm, 37 weeks zero days Femur length: 7.0 cm, 36 weeks zero days Estimated gestational age from initial scan: 35 weeks 4 days Composite gestational age from present scan: 37 weeks one day Estimated weight and percentile: 3063 g, 84th percentile Measurement variability for biometric dating: +/- 7 days from 14 weeks to 15 weeks 6 days gestation, +/- 10 days from 16 weeks to 21 weeks 6 days gestation, +/- 2 weeks from 22 weeks to 27 weeks 6 days gestation, +/- 3 weeks for 28 weeks gestation or later. weight reference: 4500 g or EFW >90/95% is considered macrosomia or large for gestational age. EFW <10% is small for gestational age. EFW 5% or less is considered intra-uterine growth restriction. Other: Not applicable. IMPRESSION: Third master living intrauterine . Current estimated age is 11 days greater than age based on initial ultrasound. Dictated by: Pelon Ramos M.D. on 03/02/2019 at 12:41 Approved by: Pelon Ramos M.D. on 03/02/2019 at 12:48
[2019-03-02 11:15] LABS: Appearance Urine UA CLEAR; Bacteria Urine None Seen; Bilirubin Urine UA NEGATIVE (NEGATIVE); Color Urine UA YELLOW; Glucose Urine UA NEGATIVE (Negative); Ketones Urine UA NEGATIVE (NEGATIVE); Leukocyte Esterase Urine UA NEGATIVE (NEGATIVE); Nitrite Urine UA NEGATIVE (Negative); Occult Blood Urine UA NEGATIVE (Negative); Protein Urine UA NEGATIVE (Negative); RBC Urine None Seen (0-5/HPF); Specific Gravity Urine UA <=1.005 (1.000-1.035); Urobilinogen Urine UA 0.2 E.U./dL (0.2); WBC Urine None Seen (0-5/HPF)
[2019-03-02] MEDS: NIFEdipine 10 MG CAPSULE PO ×4 (11:27→13:08)
[2019-03-02] MEDS: LACTATED RINGERS 1,000 ML 1000 ML IV (11:27)
[2019-03-02 11:36] LABS: Culture Indicated Urine Cult Not Indicated; Squamous Epithelial Cell Urine 5-10 /HPF (0-5/HPF)
[2019-03-02] MEDS: NIFEdipine 30 MG TAB ER PO (13:59)
== END 2019-03-02 14:00 | disposition home or self-care (01) ==
PROVIDERS: Family Medicine; Admitting Provider Family Medicine; PCP Family Medicine; Visit Provider Family Medicine
DX: O60.03 Preterm labor without delivery, third trimester (principal); Z3A.35 35 weeks gestation of pregnancy
CPT/HCPCS: 59025; 59050; 76815; 81001; 96360; G0378; G0379

== ENCOUNTER 2019-03-06 15:26 | Outpatient (CLI) | payer OTHER, MEDICAID, SELFPAY | END 2019-03-06 16:30 | disposition home or self-care (01) | LOC: LABOR 15:54 → OB 03-13 12:21 | PROVIDERS: PCP Family Medicine; Visit Provider Family Medicine | DX: O60.03 Preterm labor without delivery, third trimester (principal); Z3A.36 36 weeks gestation of pregnancy | CPT/HCPCS: 59025; 84112; G0378; G0379 ==

== ENCOUNTER 2019-03-25 17:56 | Inpatient (IN) | payer OTHER, MEDICAID, SELFPAY ==
[2019-03-25] MEDS: miSOPROStoL 25 MCG TABLET VAG (19:43)
[2019-03-25 21:03] VITALS: BP 127/71
[2019-03-25 21:25] LABS: Add Manual Diff / Slide Review NO; Basophils Absolute Auto 100 /uL (0-100); Basophils Percent Auto 0.6 % (0-2); Eosinophils Absolute Auto 100 /uL (0-450); Eosinophils Percent Auto 1.2 % (2-4); Hematocrit 27.3 % (36-46); Hemoglobin 8.7 g/dL (12.0-16.0); Lymphocytes Absolute Auto 2400 /uL (1100-4500); Lymphocytes Percent Auto 20.7 % (25-40); Mean Corpuscular HGB Conc 31.8 % (30-36); Mean Corpuscular Hemoglobin 23.2 PG (26-34); Monocytes Absolute Auto 600 /uL (0-900); Monocytes Percent Auto 4.9 % (3-14); Neutrophils Absolute Auto 8300 /uL (1500-7000); Neutrophils Percent Auto 72.6 % (50-75); Platelet Count 191 X10^3/uL (150-400); Red Blood Cell Count 3.75 X10^6/uL (4.0-5.2); Red Cell Distribution Width 14.9 % (11.6-14.8); White Blood Cell Count 11.4 X10^3/uL (4.5-11.0)
[2019-03-26] MEDS: fentaNYL 100 MCG/2 ML INJ IV (00:04)
[2019-03-26] MEDS: ONDANSETRON 4 MG/2 ML INJ IV ×2 (00:42→15:31)
--- NOTE | 2019-03-26 08:25 | P.HPOB_ITS ---
OB HPI Date/Time Date of admission: 03/25/19 Date Patient Seen: 03/26/19 Time Patient Seen: 08:25 History of Present Condition Chief complaint: LABOR : 3 Para: 2 Estimated Date of Delivery: 04/01/19 Estimated Gestational Age (weeks): 39 Narrative: Gavi Chopra is a 33 year old female 39 weeks by good dates. No significant complications during this . Patient had delivered date resume 18 and previous C she had evaluation during this genetically without significant change and normal results. Patient otherwise has had no major problems. Normal labs. Good movement throughout normal growth. She is blood type B negative and did have RhoGAM given 10 04 19. Otherwise no significant change. No issues. Brought in for induction on patient's request increasing persistent contractions without significant cervical change. Was given Cytotec last night. Cervix went from 1-2 to 3-4. Has had persistent contractions of the night. No leaking fluid. Comments: AROM this morning with clear fluid. Indications Indication for induction OB: maternal discomfort History of Present care: good care Dating criteria: LMP confirmed by 1st trimester US Ultrasounds: normal mid trimester US Obstetrical complications: none Medical complications: none Narrative: Patient has history of depression. Required treatment throughout her Preadmission Labs Blood type: B (-) negative -: Antibody screen: negative, Cystic fibrosis screen: negative, GBS status: negative, HBsAG: negative, HIV: negative, HSV 1: positive, HSV 2: negative and RPR/VDLR: negative -: Chlamydia screen: not detected and Gonorrhea screen: not detected -: Rubella: immune and Varicella: immune HCT: 27 HCAB: negative PAP: Normal Cell-free DNA: Normal female 1 hr GTT: 114 Prior (ies) History: 05/05/14 42 weeks 24 hour labor epidural female 7 lb 4 oz 03/27/2018 17 week Trisomy 18 Evaluation Evaluation Baseline heart rate: 130 Contraction Frequency (minutes): 2 Uterine Contraction Intensity: Mild Category of Tracing: I Cervical dilation (cm): 3 Cervical effacement (%): 60 station: -1 Laboratory results: Laboratory Tests 03/25/19 03/25/19 20:15 20:15 WBC 11.4 H RBC 3.75 L Hgb 8.7 L Hct 27.3 L MCV 73.0 L MCH 23.2 L MCHC 31.8 RDW 14.9 H Plt Count 191 Neut % (Auto) 72.6 Lymph % (Auto) 20.7 L [place] % (Auto) 4.9 Eos % (Auto) 1.2 L Baso % (Auto) 0.6 Neut # (Auto) 8300 H Lymph # (Auto) 2400 [place] # (Auto) 600 Eos # (Auto) 100 Baso # (Auto) 100 Blood Type B Negative Antibody Screen Negative [facility] Social History household members: significant other Smoking Status: Never smoker Meds Home Medications and Allergies Home Medications Medication Instructions Recorded Confirmed Type ALBUTEROL SULFATE (Ventolin / 2 puff INH Q4H PRN PRN #0 02/22/09 03/02/19 History Proventil) VIT#96/FERROUS FUM/FA 1 tab PO DAILY #0 10/16/12 03/02/19 History ( Vitamin) Allergies Allergy/AdvReac Type Severity Reaction Status Date / Time No Known Drug Allergies Allergy Verified 09/09/18 17:45 Review of Systems Review of Systems ROS Unobtainable: All systems reviewed & are unremarkable except as noted in HPI and below Exam Narrative Exam Narrative: Alert smiling female lying comfortably in bed no acute distress. Lungs are clear. Heart regular rate and rhythm. Abdomen is gravid with vertex presentation. Estimated weight is 8-1/2 lb. Sterile vaginal exam is 60% 3-4 vertex AROM with clear fluid. Minus one. Extremities without cyanosis clubbing edema. Reflexes are 2+ and symmetric Objective Labs Result Diagrams: 03/25/19 20:15 Labs: Laboratory Results - last 24 hr 03/25/19 03/25/19 20:15 20:15 WBC 11.4 H RBC 3.75 L Hgb 8.7 L Hct 27.3 L MCV 73.0 L MCH 23.2 L MCHC 31.8 RDW 14.9 H Plt Count 191 Neut % (Auto) 72.6 Lymph % (Auto) 20.7 L [place] % (Auto) 4.9 Eos % (Auto) 1.2 L Baso % (Auto) 0.6 Neut # (Auto) 8300 H Lymph # (Auto) 2400 [place] # (Auto) 600 Eos # (Auto) 100 Baso # (Auto) 100 Blood Type B Negative Antibody Screen Negative Assessment and Plan Assessment and Plan Assessment and Plan narrative: Thirty-nine week living 1 female patient with persistent contractions here for induction. Cervix changed significantly with Cytotec. Ruptured now. Will begin Pitocin. Prepare for vaginal delivery. Epidural if needed
[2019-03-26] MEDS: LACTATED RINGERS 1,000 ML 100 ML IV (08:34)
[2019-03-26] MEDS: OXYTOCIN PREMIX 30 UNIT/500 ML PLAST..BAG IV (08:34)
[2019-03-26] MEDS: CEFOTETAN 2 GM/50 ML PIGGYBACK IV (14:50)
--- NOTE | 2019-03-26 14:52 | SUR.OPER ---
Lithotomy on padded OR bed, head on pillow, arms secured on padded arm boards at <90 degrees abduction. Legs secured in padded yellow fins stirrups.
--- NOTE | 2019-03-26 14:56 | PM.GYNOP.1 ---
Operative Date/Time/Diagnoses Date of procedure: 03/26/19 Time of procedure: 14:56 Pre-op diagnosis: Retained placenta post delivery Post-op diagnosis: same Procedure & Clinicians Procedure: Procedures Operation Date: 03/26/19 14:30 Actual Procedures Side Surgeon p Dilation and Curettage Robby Mistry MD Indications: retained placenta post delivery Surgeon: Robby Mistry Inspector And Mender: Robby Stephenson Anesthesia Type: Epidural Operative Notes Findings: retained products of conception Closure Type: not applicable Specimen(s): none Estimated blood loss (mL): 100 Blood products transfused: none Procedure in detail: the patient was placed supine upon the operating table. She was then placed in the dorsal lithotomy position. She was draped and prepared in the usual fashion. A posterior weighted retractor was set in place. The Taveras retractors placed anteriorly for visualization. The cervix was grasped with two ring forceps. The large curette used for was then placed in the uterus and products conception were removed and identified. Ring forceps was introduced and no remaining tissue was there. Repeat curettage produced no remaining tissue there was minimal amounts of bleeding. Complications: none Post-operative Condition: stable Disposition: PACU Plan for aftercare: routine follow-up
[2019-03-26 15:07] VITALS: BP 125/78; PULSE 85; RESP 17; TEMP 37.7; O2SAT 99
[2019-03-26 15:12] VITALS: BP 121/80; PULSE 77; RESP 17; O2SAT 98
[2019-03-26 15:18] VITALS: BP 123/74; PULSE 77; RESP 18; O2SAT 98
[2019-03-26 15:22] VITALS: BP 101/62; PULSE 73; RESP 20; O2SAT 98
[2019-03-26 15:33] VITALS: BP 116/51; PULSE 76; RESP 22; O2SAT 95
--- NOTE | 2019-03-26 15:34 | SUR.PHASEI ---
0325 Patient becoming nauseated after changing positions in bed and coughing. Nausea medication given. Cool cloth to forehead. Comfort measures provided.
[2019-03-26 15:41] VITALS: BP 132/75; PULSE 77; RESP 21; O2SAT 96
--- NOTE | 2019-03-26 15:48 | SUR.PHASEI ---
Report given to Josue. Patient resting more comfortably and states relief of nausea at this time.
[2019-03-26] MEDS: KETOROLAC 30 MG/ML VIAL IV ×2 (16:11→22:05)
--- NOTE | 2019-03-26 17:34 | PM.OBPRVD ---
Labor & Delivery Delivery date: 03/26/19 Intrapartal events: None Cervical ripening method: per misoprostal protocol Induction method: per pitocin protocol Delivery augmentation: rupture of membranes Delivery monitor: external FHT Route of delivery: L&D Laceration Description: Perineal - 2nd Degree Delivery repair: vicryl Estimated blood loss (mL): 450 Anesthesia type: Epidural Complications: Retained products of conception Narrative: Patient was brought in and Cytotec was given. Had excellent results with 3 cm and 60% in a.m.. Patient was ruptured with clear fluid Pitocin was began heart monitor was reactive throughout for stage. Patient began having increasing pain and epidural was placed without complications although anesthesia wasn't adequate and 2nd epidural was placed. Excellent control at that point. Patient was then checked approximately 1 and found to be complete. We began pushing shortly thereafter. She had 2nd stage was difficult monitoring baby but overall heart rate that we could hear seem to be good. In the 110s. For pushes later 0 way over small second-degree midline tear. Child required no resuscitation. Was immediately delivered up onto the abdomen. After 2 minutes cord was clamped and cut. Three vessel cord. Plus senna was difficult. After half an hour started to have some cord tears. Placenta was in the vagina and attempts at removing it in manually were unsuccessful. Attempted actual manual removal and was unable to get to the fundus. Patient tolerated well. Dr. Mistry was consulted. Attempted manual extraction without success. Patient was taken to the operative learning disabilities resource teacher and D and C was done. Excellent results. Minimal bleeding at that time. Methergine and Pitocin were given. After D&C 2nd degree tear was repaired with Vicryl in usual manner. Epidural remained excellent throughout this. No other change. Appeared to be about 450 cc of bleeding. No other significant change. Patient tolerated well. Was to recovery room and then back to room. Still having no major issues minimal bleeding. Will continue Methergine. Antibiotic was given in operative theater. Will see how things go over the next 24 hours. Plan for aftercare: Overall doing well. Will watch closely for bleeding will continue Methergine and watch for signs of infection. Otherwise routine care.
[2019-03-26] MEDS: HYDROCODONE/ACET 5/325 TABLET 1 TAB PO ×2 (19:22→22:57)
[2019-03-26] MEDS: METHYLERGONOVINE 0.2 MG TABLET PO (21:02)
[2019-03-27] MEDS: HYDROCODONE/ACET 5/325 TABLET 1 TAB PO ×2 (02:56→09:05)
[2019-03-27] MEDS: METHYLERGONOVINE 0.2 MG TABLET PO ×2 (02:56→09:04)
[2019-03-27] MEDS: KETOROLAC 30 MG/ML VIAL IV (04:36)
--- NOTE | 2019-03-27 07:56 | PM.OBDS.1 ---
Discharge Providers Provider Date of admission: 03/25/19 17:56 Discharge Date: 03/27/19 Primary care physician: Robby Stephenson MD Consults: 03/25/19 18:19 Consult to Anesthesiology Urgent Comment: Consulting Provider: Anesthesiologist Reason for consultation: Epidural Has provider been notified: No 03/27/19 15:01 Consult to Chemical Lab Technician Routine Comment: Discharge provider: Robby Stephenson MD Summary Hospital Course Date Patient Seen: 03/27/19 Time Patient Seen: 07:56 Procedures: D&C for retained products of conception Hospital Course: Patient was admitted and placed on Cytotec. Had excellent results. Please see delivery summary. Patient was delivered without complications until plus senna came. Partially pulled cord well though did not completely come off it was clearly weak. Attempted manual extraction and was unable to get the final piece at the top of the uterus. Dr. Mistry was consulted and took her to the operating room and D&C was done without complications. Patient has had minimal bleeding. Moderate pain but is otherwise doing well. She otherwise has had no significant changes or questions go home. Will be discharged home I will see her Saturday with her child in she will call if increasing pain or other change Peripartum Data Infant Delivery Method: Natural Vaginal Laceration description: Perineal - 2nd Degree Procedures: Secondary midline for repair complications: retained placenta Status at Discharge Functional status at discharge: independent ambulation Overall status at discharge: patient is progressing back to baseline Time Spent with Patient Time attestation: Total time spent providing and/or coordinating discharge services: Time spent: Greater than 30 minutes Objective Labs Result Diagrams: 03/25/19 20:15 Labs: Laboratory Results - last 24 hr 03/27/19 05:45 Maternal Bleed Negative Exam Vital Signs (past 8 hours): Oxygen Delivery Method Room Air Discharge Plan Discharge Plan Patient Disposition: Home Discharge comment: discharge this afternoon if stable Discharge orders & Medications Prescriptions: New hydrocodone-acetaminophen 5-325 mg Tablet 1 tab PO Q4HR PRN (Reason: Pain, Moderate (4-6)) Qty: 30 RF: 0 ibuprofen 600 mg Tablet 600 mg PO Q6HR PRN (Reason: Pain, Mild (1-3)) Qty: 90 RF: 1 Continued ALBUTEROL SULFATE (Ventolin / Proventil) inhaler 2 puff INH Q4H PRN PRN (Reason: Shortness Of Breath) Qty: 0 RF: 0 VIT#96/FERROUS FUM/FA ( Vitamin) 1 tab PO DAILY Qty: 0 RF: 0 Follow up/Referrals: Robby Stephenson MD [Primary Care Provider] - 6 Weeks Discharge Health Status Health Concerns: call if increasing pain, fever or bleeding Diet/Activity/Treatments Diet: Diet as Tolerated Activity: as tolerated no sexual activity for six weeks Skin/Wound/Dressing Care Report to your healthcare provider any signs of infection, such as:: chills, fever, night sweats, increased pain, unusual drainage and unusual redness Discharge Data Primary Care Provider: Robby Stephenson
[2019-03-27 09:56] VITALS: BP 100/63; PULSE 77; RESP 18; TEMP 36.6
[2019-03-27] MEDS: RHO(D) IMMUNE GLOBULIN 1,500 UNIT SYRINGE 1500 UNIT IM (10:36)
[2019-03-27] MEDS: IBUPROFEN 600 MG TABLET PO (13:00)
== END 2019-03-27 13:00 | disposition home or self-care (01) | DRG 541 ==
PROVIDERS: Specialist; Admitting Provider Family Medicine; PCP Family Medicine; Visit Provider Family Medicine
PROC: 10D17ZZ Extraction of Products of Conception, Retained, Via Natural or Artificial Opening (ICD-10-PCS; CPT 58120; principal; 2019-03-26 14:30)
DX: O70.1 Second degree perineal laceration during delivery (principal); Z3A.39 39 weeks gestation of pregnancy; Z37.0 Single live birth; O73.0 Retained placenta without hemorrhage
CPT/HCPCS: 01967; 59050; 85025; 85461; 86850; 86900; 86901; G0379; J1885; J2405; J2590; J2790; J3010

== ENCOUNTER → 2019-11-04 17:07 | Outpatient (CLI) | payer OTHER, MEDICAID, SELFPAY ==
--- NOTE | 2019-11-04 | DI.RAD.S_ITS ---
PROCEDURE: XR THORACIC SPINE 2V INDICATIONS: BACK PAIN AND THORACIC PAIN TECHNIQUE: 3 views of the thoracic spine were acquired. COMPARISON: None. FINDINGS: Bones: No fractures or dislocations. No suspicious bony lesions. 12 pairs of ribs are noted, and appear intact where visualized. Soft tissues: No paravertebral stripe thickening. IMPRESSION: No evidence acute bony abnormality of the thoracic spine. If clinical suspicion and/or symptoms persist, further assessment with repeat plain films, or advanced imaging (e.g., CT, MRI, or bone scan) may be helpful for further assessment. Dictated by: Pelon Ramos M.D. on 11/05/2019 at 8:39 Approved by: Pelon Ramos M.D. on 11/05/2019 at 8:39
--- NOTE | 2019-11-04 | DI.RAD.S_ITS ---
PROCEDURE: XR LUMBAR SPINE 2-3V INDICATIONS: BACK PAIN AND THORACIC PAIN TECHNIQUE: 3 views of the lumbar spine were acquired. COMPARISON: None. FINDINGS: Bones: 5 [id number] vertebrae are present. There is normal bony alignment. No vertebral body compression fractures. No suspicious bony lesions. Facet arthropathy at L3-L4 through L5-S1. Soft tissues: Overlying bowel gas pattern is normal. No suspicious soft tissue calcifications. IMPRESSION: Lower lumbar facet arthropathy. No evidence acute bony abnormality of the lumbar spine. If clinical suspicion and/or symptoms persist, further assessment with repeat plain films, or advanced imaging (e.g., CT, MRI, or bone scan) may be helpful for further assessment. Dictated by: Pelon Ramos M.D. on 11/05/2019 at 8:37 Approved by: Pelon Ramos M.D. on 11/05/2019 at 8:39
== END ==
PROVIDERS: PCP Family Medicine; Referring Provider Family Medicine; Visit Provider Family Medicine
DX: M54.6 Pain in thoracic spine (principal); M54.9 Dorsalgia, unspecified; M47.816 Spondylosis without myelopathy or radiculopathy, lumbar region
CPT/HCPCS: 72070; 72100

== ENCOUNTER → 2019-12-31 12:38 | Outpatient (CLI) | payer OTHER, MEDICAID, SELFPAY ==
--- NOTE | 2019-12-31 | DI.MRI.S_ITS ---
PROCEDURE: MR LUMBAR SPINE WO CON INDICATIONS: LOW BACK PAIN WITH SCIATICA LEFT TECHNIQUE: Noncontrast sagittal T1 spin echo and T2 fast echo, sagittal STIR, axial T1 and T2 fast spin echo through the lumbar spine. In cases with scoliosis, additional coronal T2 fast spin echo may be performed. COMPARISON: [facility], CR, XR LUMBAR SPINE 2-3V, 11/04/2019, 17:09. FINDINGS: Image quality: Excellent. Alignment and Curvature: There is normal bony alignment. Bone Marrow: Marrow is of normal overall signal. No acute vertebral body compression fractures. Spinal Cord: Conus medullaris terminates at the L1 level. Visualized cord demonstrates normal signal and size. Paraspinous Soft Tissues: No paravertebral masses. L1-L2: Normal appearance. L2-L3: Normal appearance. L3-L4: Normal appearance. L4-L5: Normal appearance. L5-S1: Normal appearance. IMPRESSION: 1. Normal examination. 2. No central stenosis. 3. No neural foraminal narrowing. 4. No neural compression. Dictated by: Leslye Suárez MD, PhD on 12/31/2019 at 13:50 Approved by: Leslye Suárez MD, PhD on 12/31/2019 at 14:29
== END ==
PROVIDERS: PCP Family Medicine; Referring Provider Family Medicine; Visit Provider Family Medicine
DX: M54.42 Lumbago with sciatica, left side (principal)
CPT/HCPCS: 72148

== ENCOUNTER → 2020-04-11 15:02 | Outpatient (CLI) | payer OTHER, MEDICAID, SELFPAY ==
[2020-04-11 15:51] LABS: COVID19 -Nasal RAPID Negative (Negative)
== END ==
PROVIDERS: PCP Family Medicine; Visit Provider Physical Medicine & Rehabilitation
DX: Z01.812 Encounter for preprocedural laboratory examination (principal); Z20.822 Contact with and (suspected) exposure to COVID-19
CPT/HCPCS: 87635; C9803

== ENCOUNTER 2020-04-12 14:44 | Outpatient (CLI) | payer OTHER, MEDICAID, SELFPAY ==
[2020-04-12] VITALS (10 sets, daily range): BP systolic 107–126; BP diastolic 60–82; PULSE 71–88; RESP 14–19; TEMP 36.4; O2SAT 96–100
--- NOTE | 2020-04-12 14:46 | DI.RAD.S_ITS ---
PROCEDURE: PAIN L/SI FACET INJ/BLK 1STL INDICATIONS: SPONDYLOSIS COMPARISON: [facility], MR, MR LUMBAR SPINE WO CON, 12/31/2019, 12:56. [facility], CR, XR LUMBAR SPINE 2-3V, 11/04/2019, 17:09. FINDINGS: Fluoroscopic spot filming was performed to verify placement of spinal needles on the left at the L4-L5 and L5-S1 level(s), as labeled on the films. Appropriate location(s) of the needle tip(s) was confirmed by injection of iodinated contrast. IMPRESSION: Intraprocedural examination within normal limits. Dictated by: Floyd Mata M.D. on 04/12/2020 at 16:04 Approved by: Floyd Mata M.D. on 04/12/2020 at 16:05
[2020-04-12] MEDS: fentaNYL 100 MCG/2 ML INJ 50 MCG IV (15:57)
--- NOTE | 2020-04-12 16:02 | DI.RAD.S_ITS ---
PROCEDURE: PAIN SI JOINT INJECTION INDICATIONS: SACROCOCCYGEAL DISORDER COMPARISON: [facility], XA, PAIN L/SI FACET INJ/BLK 1STL, 04/12/2020, 16:01. FINDINGS: On this intraprocedural image, there is a spinal needle seen overlying the inferior aspect of the left sacroiliac joint. Iodinated contrast was injected to confirm appropriate needle placement. IMPRESSION: Intraprocedural examination within normal limits. Dictated by: Floyd Mata M.D. on 04/12/2020 at 16:06 Approved by: Floyd Mata M.D. on 04/12/2020 at 16:06
[2020-04-12] MEDS: MIDAZOLAM 5 MG/5 ML VIAL IV (16:04)
[2020-04-12] MEDS: BETAMETHASONE 30 MG/5 ML MDV 12 MG INJ (16:06)
[2020-04-12] MEDS: BUPIVACAINE 0.5% (PF) VIAL 2 ML INJ (16:06)
[2020-04-12] MEDS: IOPAMIDOL 15 ML VIAL 3 ML INJ (16:06)
--- NOTE | 2020-04-12 16:19 | P.PCN_ITS ---
Date/Time/Diagnoses Date of procedure: 04/12/20 Time of procedure: 16:19 Pre-procedure diagnosis: 1. FACET ARTHROPATHY, 2. AXIAL LBP, 3. MULTILEVEL DDD Post-procedure diagnosis: same Procedure Notes Procedure: 1. FLUOROSCOPICALLY GUIDED CONTRAST CONTROLLED FACET JOINT INJECTIONS LEFT L4/5, L5/S1 Indications: Gavi is referred by Dr. Stephenson for treatment of Axial LBP Physician: Robby Smith Total Fluoroscopy time (seconds): 17 Total sedation minutes: 18 Complications: none Procedure in detail & Post-procedure care: FINDINGS Multilevel Facet Arthropathy with Clinically significant axial LBP DESCRIPTION OF PROCEDURE Fluoroscopically guided, contrast-controlled left L4/5, L5/S1 facet joint injections. Following review of allergy and review of potential side effects and complications, including, but not necessarily limited to, infection, allergic reaction, local tissue breakdown, stroke, temporary or permanent nerve injury, paralysis, and possible , the patient indicated that the patient understood and agreed to proceed. An informed consent document was signed by the patient, witnessed by a nurse, and placed in the patient's chart. Additionally, other treatment options including medications, modalities, and physical therapy were reviewed with the patient. After review of previous anaesthesic history and IV conscious sedation the patient was deemed safe to proceed with today?s procedure with IV conscious sedation as ASA class II designation. Safety time-out was performed to confirm patient ID, procedure to be performed and site of procedure. IV sedation was accomplished with a combination of 2mg of Versed and 50mcg of Fentanylwas administered by the RN after DO order, titrated to patient comfort during the course of the procedure while the patient remained responsive to all verbal commands. In the prone position, following sterile prep and drape of the lumbar region, the posterior aspect of the left L4/5, L5/S1 facet joints were identified fluoroscopically. The skin was anesthetized via a 25-gauge 1.5-inch needle with 1% lidocaine solution into the corresponding facet joints. At this point, a 22- gauge 3.5-inch spinal needle was atraumatically introduced and advanced under fluoroscopic guidance into the corresponding facet joints. Following negative aspiration, injections of approximately 0.2-cc of Isovue 200 confirmed in terarticular placement without vascular uptake. Radiological data, including multiple fluoroscopic views of the lumbosacral spine, reveal a spinal needle at the left L4/5, L5/S1 facet joints. Subsequent views show flow of contrast material both superiorly and inferiorly within the joint space without vascular or intrathecal uptake. At this point, a total of 0.5 cc including a mixture of 0.25cc Marcaine and 0.25cc betamethasone was injected without complication into each of the corresponding facet joints. The procedure tolerated the procedure well without signs or symptoms of complica tions prior to transfer to the recovery area continued monitoring without incident. The patient was then transferred to the recovery area where they were observed for an appropriate period of time after the injection. The patient reported a VAS score of 7 prior to the procedure and a post-procedure VAS of 0. POST OP INSTRUCTIONS The patient was provided a Pain Log to continue to record their response to the target-specific procedure prior to follow-up visit with their referring physician. Additionally, specific post-injection care instructions and a contact number to our office were provided if concerns arise regarding possible complications associated with the procedure are suspected.
--- NOTE | 2020-04-12 16:22 | P.PCN_ITS ---
Date/Time/Diagnoses Date of procedure: 04/12/20 Time of procedure: 16:22 Pre-procedure diagnosis: Sacroiliac Joint Pain/DJD Post-procedure diagnosis: same Procedure Notes Procedure: Fluoroscopically guided contrast controlled left sacroiliac joint injection Indications: Gavi is referred by Dr. Stephenson for treatment of left sacroiliac joint DJD Physician: Robby Smith Total Fluoroscopy time (seconds): 18 Total sedation minutes: 19 Complications: none Procedure in detail & Post-procedure care: DESCRIPTION OF PROCEDURE Fluoroscopic guided, contrast controlled left sacroiliac joint injection Following review of allergies and review of potential side effects and complications, including, but not necessarily limited to, infection, allergic reaction, local tissue breakdown, temporary as well as permanent nerve injury, paralysis, stroke and possible , the patient indicated that they understood and agreed to proceed. An informed consent was signed by the patient, witnessed by a nurse, and placed in the patient's chart. Additionally, other treatment options including modalities, medications, and physical therapy were reviewed with the patient. After review of previous anaesthesic history and IV conscious sedation the patient was deemed safe to proceed with today?s procedure with IV conscious sedation as ASA class II designation. Safety time-out was performed to confirm patient ID, procedure to be performed and site of procedure. IV sedation was accomplished with a combination of 2mg of Versed and 50mcg of Fentanyl administered by the RN after DO order, titrated to patient comfort during the course of the procedure while the patient remained responsive to all verbal commands. In the prone position following sterile prep and drape of the pelvic region, the hyper lucency on in the inferior aspect of the left sacroiliac joint was identified fluoroscopically the skin was anesthetized be a 25 gauge 1 eventual with approximately 2cc of 1% lidocaine solution. At this point, a 22 gauge 3inch spinal needle was atraumatically introduced and advanced under fluoroscopic guidance into the inferior aspect of the left sacroiliac joint. Following negative aspiration, approximately 0.3cc of Isovue-300 was injected confirming intra-articular placement without vascular uptake. Radiographic data, including multiple fluoroscopic views of the pelvis, reveals a spinal needle in the left sacroiliac joint hyper lucent zone. Subsequent view show flow contrast tear superiorly and inferiorly within the joint capsule without vascular intrathecal uptake. At this point a total of 1cc or 0.5% Marcaine was combined with 1cc of 6mg of betamethasone was injected without incident. The patient tolerated the procedure well without signs or symptoms of complications prior to transfer to the recovery area for further monitoring. The patient was then transferred to the recovery area with a bur observed for an appropriate time after the injection. The patient reverted a vas score of 7 trever or to the procedure and postprocedure vas of 1. POSTOP INSTRUCTIONS The patient was provided with a pain like to continue to record the patient's response to the target specific procedure prior to the patient's follow-up visit with the referring physician. Additionally, specific post injection care instructions and a contact number to our office were provided if concerns arise regarding the possible complications associated with procedure are suspected.
== END 2020-04-12 16:34 | disposition home or self-care (01) ==
LOC: RAD 14:46
PROVIDERS: PCP Family Medicine; Referring Provider Physical Medicine & Rehabilitation; Visit Provider Physical Medicine & Rehabilitation
DX: M47.816 Spondylosis without myelopathy or radiculopathy, lumbar region (principal); M47.817 Spondylosis without myelopathy or radiculopathy, lumbosacral region; M51.36 Other intervertebral disc degeneration, lumbar region; M51.37 Other intervertebral disc degeneration, lumbosacral region; M53.3 Sacrococcygeal disorders, not elsewhere classified; M46.1 Sacroiliitis, not elsewhere classified
CPT/HCPCS: 27096; 64493; 64494; 99152; J0702; J2250; J3010

== ENCOUNTER → 2020-08-19 13:30 | Outpatient (CLI) | payer OTHER, MEDICAID, SELFPAY ==
[2020-08-19] MEDS: COVID-19 VACC, Ad26(JANSSEN)/PF 0.5 ML IM (13:34)
== END ==
PROVIDERS: PCP Family Medicine; Visit Provider Internal Medicine
DX: Z23 Encounter for immunization (principal)
CPT/HCPCS: 0031A; 91303

== ENCOUNTER 2021-12-16 08:28 | Emergency (ER) | payer OTHER, MEDICAID, SELFPAY ==
[2021-12-16] VITALS (9 sets, daily range): BP systolic 116; BP diastolic 75; PULSE 83–109; RESP 18; TEMP 36.6; O2SAT 96–100; BMI 38.9
--- NOTE | 2021-12-16 08:47 | ED.NAVMDI ---
HPI - Nausea/Vomiting/Diarrhea General Chief complaint: Nausea/Vomiting/Diarrhea Stated complaint: 7 WEEKS NASEAOUS X2DAYS Time Seen by Provider: 12/16/21 08:30 Source: family Mode of arrival: Ambulatory Limitations: no limitations History of Present Illness HPI Narrative: Patient is a 36-year-old female. Is Rh negative. Is approximately 7 weeks EGA. Is a . Here for evaluation of several days of nausea and vomiting. She has had hyperemesis with her last . She states that the dissolvable Zofran normally works for her. She does not have the dissolvable only the oral Zofran at home. States she tried to wait it out until Saturday when she can see her family physician but has been vomiting for the past couple days and then think she could make it that long. She reports no vaginal bleeding. No urinary symptoms. No diarrhea nor constipation. No fevers. No abdominal pain. Related Data Home Medications Medication Instructions Recorded Confirmed ALBUTEROL SULFATE (Ventolin / 2 puff INH Q4H PRN PRN Shortness 02/22/09 06/27/20 Proventil) Of Breath ##0 acetaminophen 325 mg tablet 650 mg PO Q6H PRN 03/09/20 06/27/20 (Tylenol) venlafaxine 150 mg 150 mg PO DAILY 03/09/20 06/27/20 capsule,extended release 24 hr Previous Rx's Medication Instructions Recorded celecoxib 200 mg capsule (Celebrex) 200 mg PO DAILY #30 caps 06/27/20 ondansetron 4 mg disintegrating 4 mg PO Q6H PRN nausea and 12/16/21 tablet vomiting #20 tabs Allergies Allergy/AdvReac Type Severity Reaction Status Date / Time cephalexin [From Keflex] Allergy Intermediate Rash Verified 06/27/20 08:57 Review of Systems Review of Systems ROS Unobtainable: All systems reviewed & are unremarkable except as noted in HPI and below Patient History Medical History Facet arthropathy, lumbar Hyperemesis gravidarum Sacral dysfunction Surgical History No pertinent past surgical history Family History Father Hypertension Mother Hypertension Congestive heart failure Grandmother Diabetes mellitus Hypertension Social History household members: significant other Smoking Status: Never smoker Smoking Status: Never smoker alcohol intake frequency: holidays/special occasions only Substance Use Type: marijuana Exam Initial Vital Signs Initial Vital Signs: Vital Signs Temperature 97.9 F 12/16/21 08:30 Pulse Rate 109 H 12/16/21 08:30 Respiratory Rate 18 12/16/21 08:30 Blood Pressure 116/75 12/16/21 08:30 Pulse Oximetry 98 12/16/21 08:30 Oxygen Delivery Method 12/16/21 08:30 Const General: cooperative and comfortable HENMT Head: normal to inspection and normocephalic Resp Effort & Inspection: normal respiratory effort Auscultation: clear to auscultation bilaterally Cardio Rate: regular rate Rhythm: regular rhythm GI Inspection: normal to inspection and non-distended Palpation: No tender Skin General: no rashes or lesions noted Neuro General: patient alert, patient awake and moves all extremities Speech: speech normal Gait: normal gait Extrem General: normal to inspection and capillary refill normal Psych Appearance: grossly normal and well kempt Course Orders Ordered: ED Orders 12/16/21 08:50 Urine Microscopic Stat 12/16/21 09:30 Complete Blood Count AUTO DIFF Stat Comprehensive Metabolic Panel Stat Lipase Stat Discontinued Medications Sodium Chloride (Normal Saline 0.9%) 1,000 mls @ 1,000 mls/hr IV BOLUS ONE Stop: 12/16/21 09:46 Last Admin: 12/16/21 09:29 Dose: 1,000 mls/hr Documented By: CORNELIO Ondansetron HCl (Ondansetron 4 Mg/2 Ml Inj) 4 mg IV NOW ONE Stop: 12/16/21 08:48 Last Admin: 12/16/21 09:29 Dose: 4 mg Documented By: CORNELIO Vital Signs Vital signs: Vital Signs - 8 hr 12/16/21 08:30 12/16/21 08:35 12/16/21 08:36 Temperature 97.9 F Pulse Rate 109 H 107 H 107 H Respiratory Rate 18 Blood Pressure 116/75 Pulse Oximetry 98 97 96 Oxygen Delivery Method Room Air 12/16/21 08:38 Temperature Pulse Rate Respiratory Rate Blood Pressure 116/75 Pulse Oximetry Oxygen Delivery Method MDM - Nausea/Vomiting/Diarrhea Lab Data Attestation: I reviewed the patient's lab results. Result diagrams: 12/16/21 09:30 12/16/21 09:30 Labs: Lab Results 12/16/21 12/16/21 12/16/21 Range/Units 08:50 09:30 09:30 WBC 7.5 (4.5-11.0) X10^3/uL RBC 5.09 (4.0-5.2) X10^6/uL Hgb 12.6 (12.0-16.0) g/dL Hct 38.1 (36-46) % MCV 75.0 L (80-100) fL MCH 24.7 L (26-34) PG MCHC 33.0 (30-36) % RDW 16.5 H (11.6-14.8) % Plt Count 251 (150-400) X10^3/uL Neut % (Auto) 64.4 (50-75) % Lymph % (Auto) 23.6 L (25-40) % [place] % (Auto) 5.6 (3-14) % Eos % (Auto) 5.5 H (2-4) % Baso % (Auto) 0.9 (0-2) % Neut # (Auto) 4800 (8152-0357) /uL Lymph # (Auto) 1800 (2296-7982) /uL [place] # (Auto) 400 (0-900) /uL Eos # (Auto) 400 (0-450) /uL Baso # (Auto) 100 (0-100) /uL Sodium 137 (137-145) mmol/L Potassium 3.8 (3.4-5.1) mmol/L Chloride 104 (98-107) mmol/L Carbon Dioxide 24 (22-32) mmol/L BUN 10 (7-17) mg/dL Creatinine 0.61 (0.52-1.04) mg/dL Estimated GFR > 60 (>60) mL/min BUN/Creatinine Ratio 16.4 (6-22) Glucose 110 H (70-100) mg/dL Calcium 8.8 (8.4-10.2) mg/dL Total Bilirubin 0.5 (0.2-1.3) mg/dL AST 33 (14-36) IU/L ALT 27 (<35) IU/L Alkaline Phosphatase 77 (38-126) U/L Total Protein 7.7 (6.3-8.2) g/dL Albumin 4.3 (3.5-5.0) g/dL Globulin 3.4 (1.7-4.1) g/dL Albumin/Globulin Ratio 1.3 (1.0-2.8) Lipase 51 (23-300) U/L Urine RBC 1-5/hpf (0-5/HPF) Urine WBC 30-100/hpf H (0-5/HPF) Ur Squamous Epith Cells >30 /hpf H (0-5/HPF) Urine Bacteria Many (>30) H (None) 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 Micro UA Comment Urine Dip Bedside Urine Glucose Negative Bedside Urine Bilirubin - Negative Bedside Urine Ketone +/- 5 Urine Specific [place] 1.015 Bedside Urine Occult Blood +/- Bedside Urine pH 6.5 Bedside Urine Protein +/- 15 Bedside Urine Urobilinogen - Negative Bedside Urine Nitrite - Negative Bedside Urine Leukocytes + 70 Esterase MDM Narrative Medical decision making narrative: Patient reports that after fluids and the Zofran she is feeling better. She now feels hungry. She can tolerate oral intake. She felt that the ODT Zofran has helped for her in the past. Will give a prescription for this. We can hold on radiologic studies for now. She was given return precautions. She expressed understanding and agreement. Discharge Plan Departure Patient Disposition: Home Clinical Impression: Nausea and vomiting during Instructions: Nausea of (Alternative Therapy) Activity Restrictions/Additional Instructions: I do recommend that you continue to take all of your medications as directed and keep all of your scheduled OB appointments. Use the nausea medication as needed. Return to the emergency department for any new or worsening symptoms. Prescriptions: New ondansetron 4 mg tablet,disintegrating 4 mg PO Q6H PRN (Reason: nausea and vomiting) Qty: 20 0RF No Action ALBUTEROL SULFATE (Ventolin / Proventil) inhaler 2 puff INH Q4H PRN PRN (Reason: Shortness Of Breath) Qty: 0 celecoxib [Celebrex] 200 mg capsule 200 mg PO DAILY Qty: 30 2RF venlafaxine 150 mg capsule,extended release 24hr 150 mg PO DAILY acetaminophen [Tylenol] 325 mg tablet 650 mg PO Q6H PRN Referrals: Robby Stephenson MD [Primary Care Provider] -
[2021-12-16] MEDS: SODIUM CHLORIDE 0.9% 1,000 ML 1000 ML IV (09:29)
[2021-12-16] MEDS: ONDANSETRON 4 MG/2 ML INJ IV (09:29)
[2021-12-16 09:34] LABS: Add Manual Diff / Slide Review NO; Basophils Absolute Auto 100 /uL (0-100); Basophils Percent Auto 0.9 % (0-2); Eosinophils Absolute Auto 400 /uL (0-450); Eosinophils Percent Auto 5.5 % (2-4); Hematocrit 38.1 % (36-46); Hemoglobin 12.6 g/dL (12.0-16.0); Lymphocytes Absolute Auto 1800 /uL (1100-4500); Lymphocytes Percent Auto 23.6 % (25-40); Mean Corpuscular Hemoglobin 24.7 PG (26-34); Monocytes Absolute Auto 400 /uL (0-900); Monocytes Percent Auto 5.6 % (3-14); Neutrophils Absolute Auto 4800 /uL (1500-7000); Neutrophils Percent Auto 64.4 % (50-75); Platelet Count 251 X10^3/uL (150-400); Red Blood Cell Count 5.09 X10^6/uL (4.0-5.2); Red Cell Distribution Width 16.5 % (11.6-14.8); White Blood Cell Count 7.5 X10^3/uL (4.5-11.0)
[2021-12-16 09:50] LABS: Bacteria Urine Many (>30); RBC Urine 1-5/HPF (0-5/HPF); Squamous Epithelial Cell Urine >30 /HPF (0-5/HPF); WBC Urine 30-100/HPF (0-5/HPF)
[2021-12-16 09:57] LABS: Alanine Aminotransferase 27 IU/L (<35); Albumin 4.3 g/dL (3.5-5.0); Albumin Globulin Ratio 1.3 (1.0-2.8); Alkaline Phosphatase 77 U/L (38-126); Aspartate Aminotransferase 33 IU/L (14-36); BUN Creatinine Ratio 16.4 (6-22); Bilirubin Total 0.5 mg/dL (0.2-1.3); Blood Urea Nitrogen 10 mg/dL (7-17); Calcium 8.8 mg/dL (8.4-10.2); Carbon Dioxide 24 mmol/L (22-32); Chloride 104 mmol/L (98-107); Estimated Glomerular Filt Rate > 60 mL/min (>60); Globulin 3.4 g/dL (1.7-4.1); Glucose 110 mg/dL (70-100); HEMOLYSIS < 15 (0-50); Lipase 51 U/L (23-300); Potassium 3.8 mmol/L (3.4-5.1); Sodium 137 mmol/L (137-145); Total Protein 7.7 g/dL (6.3-8.2)
== END 2021-12-16 11:18 | disposition home or self-care (01) ==
PROVIDERS: Emergency Provider Emergency Medicine; PCP Family Medicine
DX: O21.9 Vomiting of pregnancy, unspecified (principal); Z3A.01 Less than 8 weeks gestation of pregnancy
CPT/HCPCS: 36415; 80053; 81003; 81015; 83690; 85025; 96361; 96374; 99284; J2405

== ENCOUNTER → 2022-01-04 09:40 | Outpatient (CLI) | payer OTHER, MEDICAID, SELFPAY ==
--- NOTE | 2022-01-04 09:40 | DI.US.S_ITS ---
PROCEDURE: US OB <= 14 WEEKS FETUS INDICATIONS: DATING OUTSIDE/PRIOR DATING DATA: Last menstrual period (LMP): 11/06/2021 LMP-based estimated date of delivery (GLORIA): 08/13/2022 First dating scan (date and location): 01/04/2022 Estimated date of delivery (GLORIA) from first dating scan: 08/15/2022 TECHNIQUE: Real-time scanning was performed of the fetus and maternal pelvic organs, with image documentation. Endovaginal scanning was also performed to better visualize the fetus and maternal ovaries. COMPARISON: [facility], , OB <= 14 WEEKS FETUS, 09/16/2018, 10:37. FINDINGS: Embryo: Intrauterine gestational sac is seen with yolk sac and pole. [place]-rump length is 1.7 cm, compatible with an estimated gestational age of 8 weeks 1 day. A small hypodense perigestational sac hemorrhage measures 1.5 x 0.4 x 1.2 cm. Heart rate: 171 beats per minute Maternal organs: A probable left corpus luteum cyst is seen. The right ovary is not well visualized. IMPRESSION: 1. Single live intrauterine with estimated gestational age of 8 weeks 1 day, giving an ultrasound GLORIA of 08/15/2022. 2. Small 1.5 cm perigestational sac hemorrhage. We strive to produce accurate, complete, and clear reports of imaging services. To assist us in improving patient care, this report was composed using standard report templates and voice recognition software. Therefore, it may contain abnormal punctuation, insertions and/or omissions. Occasional wrong-word or sound-alike substitutions may occur. Though we review the report and make efforts to correct it, we do recommend that the report be read carefully in proper context to recognize any text inaccuracies. Dictated by: Abdoulaye Escudero M.D. on 01/04/2022 at 12:48 Approved by: Abodulaye Escudero M.D. on 01/04/2022 at 12:51
== END ==
PROVIDERS: PCP Family Medicine; Referring Provider Obstetrics & Gynecology; Visit Provider Obstetrics & Gynecology
DX: Z34.81 Encounter for supervision of other normal pregnancy, first trimester (principal); Z3A.08 8 weeks gestation of pregnancy
CPT/HCPCS: 76801; 76817

== ENCOUNTER → 2022-01-23 11:49 | Outpatient (CLI) | payer OTHER, MEDICAID, SELFPAY ==
[2022-01-23 12:31] LABS: Specimen Label Y
[2022-01-23 13:22] LABS: Add Manual Diff / Slide Review NO; Basophils Absolute Auto 100 /uL (0-100); Basophils Percent Auto 1.2 % (0-2); Eosinophils Absolute Auto 700 /uL (0-450); Eosinophils Percent Auto 7.4 % (2-4); Hematocrit 35.7 % (36-46); Hemoglobin 11.9 g/dL (12.0-16.0); Lymphocytes Absolute Auto 1900 /uL (1100-4500); Lymphocytes Percent Auto 19.9 % (25-40); Mean Corpuscular HGB Conc 33.4 % (30-36); Mean Corpuscular Hemoglobin 25.1 PG (26-34); Mean Corpuscular Volume 75.1 fL (80-100); Monocytes Absolute Auto 400 /uL (0-900); Monocytes Percent Auto 4.6 % (3-14); Neutrophils Absolute Auto 6300 /uL (1500-7000); Neutrophils Percent Auto 66.9 % (50-75); Platelet Count 241 X10^3/uL (150-400); Red Blood Cell Count 4.76 X10^6/uL (4.0-5.2); Red Cell Distribution Width 15.9 % (11.6-14.8); White Blood Cell Count 9.5 X10^3/uL (4.5-11.0)
[2022-01-23 16:01] LABS: Appearance Urine UA CLEAR; Bilirubin Urine UA NEGATIVE (NEGATIVE); Color Urine UA YELLOW; Glucose Urine UA NEGATIVE (Negative); Ketones Urine UA 1+ (NEGATIVE); Leukocyte Esterase Urine UA NEGATIVE (NEGATIVE); Nitrite Urine UA NEGATIVE (Negative); Occult Blood Urine UA TRACE-INTACT (Negative); Protein Urine UA NEGATIVE (Negative); Urobilinogen Urine UA 0.2 E.U./dL (0.2)
[2022-01-23 17:56] LABS: Urine N gonorrhoeae NOT DETECTED
[2022-01-23 18:00] LABS: Urine Chlamydia NOT DETECTED
[2022-01-24 09:27] LABS: Varicella IgG Antibody 1655 index (Immune >165)
[2022-01-25 06:17] LABS: RPR Screen Non Reactive (Non Reactive)
[2022-01-25 16:12] LABS: Hepatitis B Surface Antigen NEGATIVE s/c (NEGATIVE); Rubella Antibody IgG 7.9 IU/mL (>15)
[2022-01-25 16:34] LABS: HIV 1 & 2 Ab/Ag 4th Gen Combo NEGATIVE (NEGATIVE); Hep C Virus Ab w/Reflex Quant NEGATIVE s/c (NEGATIVE)
== END ==
PROVIDERS: PCP Family Medicine; Referring Provider Obstetrics & Gynecology; Visit Provider Obstetrics & Gynecology
DX: Z34.81 Encounter for supervision of other normal pregnancy, first trimester (principal); Z3A.11 11 weeks gestation of pregnancy
CPT/HCPCS: 36415; 80055; 81003; 86787; 86803; 86850; 86900; 86901; 87086; 87389; 87491; 87591

== ENCOUNTER → 2022-02-19 14:33 | Outpatient (CLI) | payer OTHER, MEDICAID, SELFPAY | PROVIDERS: PCP Family Medicine; Visit Provider Obstetrics & Gynecology | DX: Z34.82 Encounter for supervision of other normal pregnancy, second trimester (principal); Z3A.15 15 weeks gestation of pregnancy | CPT/HCPCS: 87086 ==

== ENCOUNTER → 2022-03-19 09:38 | Outpatient (CLI) | payer OTHER, MEDICAID, SELFPAY ==
[2022-03-21 21:04] LABS: AFP Value 51.3 ng/mL (.); Insulin Dep Diabetes No (.); OSBR Risk 1IN 4273 (.); Results Report (.); Test Results *Screen Negative* (.)
== END ==
PROVIDERS: PCP Family Medicine; Referring Provider Obstetrics & Gynecology; Visit Provider Obstetrics & Gynecology
DX: O09.299 Supervision of pregnancy with other poor reproductive or obstetric history, unspecified trimester (principal); Z3A.19 19 weeks gestation of pregnancy
CPT/HCPCS: 36415; 82105; 87086

== ENCOUNTER → 2022-03-23 15:09 | Outpatient (CLI) | payer OTHER, MEDICAID, SELFPAY ==
--- NOTE | 2022-03-23 15:11 | DI.US.S_ITS ---
PROCEDURE: US OB >= 14 WEEKS FETUS INDICATIONS: 20 week anatomy OUTSIDE/PRIOR DATING DATA: Last menstrual period (LMP): 11/06/2021 LMP-based estimated date of delivery (GLORIA): 08/13/2022 First dating scan (date and location): 01/04/2022 Estimated date of delivery (GLORIA) from first dating scan: 08/15/2022. The calculations are made using the working GLORIA of 08/13/2022. TECHNIQUE: Real-time scanning was performed of the fetus, with image documentation and biometric measurements. Endovaginal scanning: Not indicated. COMPARISON: [facility], , OB <= 14 WEEKS FETUS, 01/23/2022, 11:40. [facility], , US OB >= 14 WEEKS FETUS, 11/06/2018, 12:18. FINDINGS: General: A single living intrauterine gestation is present. Presentation: Variable Placenta: Placental position is posterior, placenta edge is 1.7 cm from internal os. Amniotic fluid index: 13.3 cm, normal range is 5-24 cm. Single deepest vertical pocket is 4.4 cm. heart rate: 145 beats per minute. Maternal cervical canal: 3.9 cm long. Normal lower limit is 2.5 cm. biometrics: Biparietal diameter: 4.5 cm, 19 weeks, 5 days. Head circumference: 16.4 cm, 19 weeks, 1 day. Abdominal circumference: 14.7 cm common 20 weeks, 0 day. Femur length: 3.0 cm, 19 weeks, 1 day. Clinically estimated gestational age: 19 weeks, 4 days. Composite gestational age from present scan: 19 weeks, 4 days. Estimated weight and percentile: 301 g, 46%. Anatomic survey: Neuro: Ventricles are non-dilated at less than 10 mm. Cisterna magna is normal at 3-11 mm. Cerebellum is normal in size and morphology. Nuchal skin fold: Normal at less than 6 mm between 14-21 weeks gestational age. Face: Not well seen Spine: No evidence for spina bifida. Heart: 4-chambered heart is present, with normal ventricular outflow tracts. Diaphragm: Diaphragm is intact. Stomach: Left-sided stomach is present. Kidneys: No hydronephrosis. Normal is less than 5 mm in 2nd trimester, less than 7 mm in 3rd trimester. Cord: 3-vessel cord has orthotopic insertion. Bladder: Normal in size. Extremities: All 4 extremities identified. IMPRESSION: 1. Single live intrauterine gestation with fetus in variable presentation. heart rate is 145 beats per minute. Normal amount of amniotic fluid. Normal growth. Estimated weight is at 46%. 2. Placenta location is posterior. Placenta edge is 1.7 cm from internal os. Sonographic follow-up is recommended. 3. facial profile is not well seen on this study due to position. Rest of the anatomic survey is normal. We strive to produce accurate, complete, and clear reports of imaging services. To assist us in improving patient care, this report was composed using standard report templates and voice recognition software. Therefore, it may contain abnormal punctuation, insertions and/or omissions. Occasional wrong-word or sound-alike substitutions may occur. Though we review the report and make efforts to correct it, we do recommend that the report be read carefully in proper context to recognize any text inaccuracies. Dictated by: aNzario Amato M.D. on 03/23/2022 at 18:15 Approved by: Nazario Amato M.D. on 03/23/2022 at 18:19
== END ==
PROVIDERS: PCP Family Medicine; Referring Provider Obstetrics & Gynecology; Visit Provider Obstetrics & Gynecology
DX: Z34.82 Encounter for supervision of other normal pregnancy, second trimester (principal); Z3A.19 19 weeks gestation of pregnancy
CPT/HCPCS: 76811

== ENCOUNTER → 2022-05-07 08:46 | Outpatient (CLI) | payer OTHER, MEDICAID, SELFPAY ==
[2022-05-07 10:57] LABS: Hematocrit 29.8 % (36-46)
[2022-05-07 11:32] LABS: GTT (PREG) 1 Hour PP 50gm Dose 128 mg/dL (76-139)
== END ==
PROVIDERS: PCP Family Medicine; Referring Provider Obstetrics & Gynecology; Visit Provider Obstetrics & Gynecology
DX: O26.899 Other specified pregnancy related conditions, unspecified trimester (principal); Z67.91 Unspecified blood type, Rh negative; Z3A.26 26 weeks gestation of pregnancy
CPT/HCPCS: 82950; 85014; 85018; 86850

== ENCOUNTER → 2022-06-21 14:00 | Oncology outpatient (ONC) | payer OTHER, MEDICAID, SELFPAY ==
[2022-05-23 13:54] VITALS: BP 126/77; PULSE 72; RESP 16; TEMP 36.8; O2SAT 96
[2022-05-23] MEDS: SODIUM FERRIC GLUCONAT/SUCROSE 125 MG in SODIUM CHLORIDE 0.9% 100 ML 110 MG IV (15:02)
[2022-05-23 16:21] VITALS: BP 131/76; PULSE 88; RESP 16; O2SAT 97
[2022-05-30 11:58] VITALS: BP 126/76; PULSE 91; RESP 16; TEMP 37.1; O2SAT 96
[2022-05-30] MEDS: SODIUM FERRIC GLUCONAT/SUCROSE 125 MG in SODIUM CHLORIDE 0.9% 100 ML 110 MG IV (12:17)
[2022-05-30 12:37] VITALS: PULSE 85
[2022-05-30 14:10] VITALS: BP 126/73; PULSE 88; RESP 18; TEMP 36.4
[2022-06-04 14:19] VITALS: BP 111/67; PULSE 100; RESP 16; TEMP 36.6; O2SAT 96
[2022-06-04] MEDS: SODIUM FERRIC GLUCONAT/SUCROSE 125 MG in SODIUM CHLORIDE 0.9% 100 ML 110 MG IV (14:48)
[2022-06-07 15:04] VITALS: BP 99/61; PULSE 76; RESP 16; TEMP 36.4; O2SAT 96
[2022-06-07] MEDS: SODIUM FERRIC GLUCONAT/SUCROSE 125 MG in SODIUM CHLORIDE 0.9% 100 ML 110 MG IV (15:25)
[2022-06-11 14:30] VITALS: BP 130/58; PULSE 82; RESP 18; TEMP 36.3; O2SAT 98
[2022-06-11] MEDS: SODIUM FERRIC GLUCONAT/SUCROSE 125 MG in SODIUM CHLORIDE 0.9% 100 ML 110 MG IV (14:47)
--- NOTE | 2022-06-11 16:07 | PC.NURSE ---
Tolerated IV iron infusion without adverse reaction.
[2022-06-14] MEDS: SODIUM FERRIC GLUCONAT/SUCROSE 125 MG in SODIUM CHLORIDE 0.9% 100 ML 110 MG IV (14:58)
[2022-06-14 15:18] VITALS: BP 127/77; PULSE 88; RESP 18; TEMP 37.5; O2SAT 95
[2022-06-18 14:15] VITALS: BP 126/71; PULSE 97; RESP 16; TEMP 36.9; O2SAT 98
[2022-06-18] MEDS: SODIUM FERRIC GLUCONAT/SUCROSE 125 MG in SODIUM CHLORIDE 0.9% 100 ML 110 MG IV (14:53)
[2022-06-21 14:41] VITALS: BP 122/67; PULSE 87; RESP 16; TEMP 36.8; O2SAT 96
[2022-06-21] MEDS: SODIUM FERRIC GLUCONAT/SUCROSE 125 MG in SODIUM CHLORIDE 0.9% 100 ML 110 MG IV (14:51)
--- NOTE | 2022-06-21 17:07 | PC.NURSE ---
Tolerated Ferrlecit without adverse reaction. Left infusion room ambulatory in no distress.
== END ==
PROVIDERS: PCP Family Medicine; Referring Provider Obstetrics & Gynecology; Visit Provider Obstetrics & Gynecology
DX: O99.013 Anemia complicating pregnancy, third trimester (principal); D64.9 Anemia, unspecified
CPT/HCPCS: 96365; 96366; J2916

== ENCOUNTER → 2022-07-17 09:42 | Outpatient (CLI) | payer OTHER, MEDICAID, SELFPAY ==
[2022-07-18 09:55] LABS: Strep Grp B PCR POS for Grp B Strep
== END ==
PROVIDERS: PCP Family Medicine; Visit Provider Obstetrics & Gynecology
DX: Z34.83 Encounter for supervision of other normal pregnancy, third trimester (principal); Z3A.36 36 weeks gestation of pregnancy
CPT/HCPCS: 87653

== ENCOUNTER 2022-07-30 11:41 | Observation (INO) | payer OTHER, MEDICAID, SELFPAY ==
[2022-07-30] MEDS: MORPHINE 10 MG/ML INJ 6 MG IM (14:31)
== END 2022-07-30 14:37 | disposition home or self-care (01) ==
PROVIDERS: Admitting Provider Obstetrics & Gynecology; PCP Family Medicine; Referring Provider Obstetrics & Gynecology; Visit Provider Obstetrics & Gynecology
DX: O47.1 False labor at or after 37 completed weeks of gestation (principal); O09.523 Supervision of elderly multigravida, third trimester; Z3A.38 38 weeks gestation of pregnancy
CPT/HCPCS: 59025; 59050; 84112; 96372; G0378; G0379; J2270

== ENCOUNTER 2022-08-04 14:43 | Observation (INO) | payer OTHER, MEDICAID, SELFPAY ==
--- NOTE | 2022-08-04 18:08 | P.TNLD_ITS ---
Visit Information Visit Information Date of evaluation: 08/04/22 Primary OB Provider: Nidhi Nelson On-call OB Provider: Theresa Seymour Reason for Evaluation: Yes rule out labor Vital Signs Vital Signs: Blood pressure 123/89, pulse 113, temperature 97.5? [facility] Medical History (Updated 07/15/22 @ 20:45 by Nidhi Nelson MD) 35 weeks gestation of Facet arthropathy, lumbar Hyperemesis gravidarum Migraine with aura Premature uterine contractions Sacral dysfunction Substance abuse Surgical History (Updated 12/26/21 @ 09:53 by Mai Alvarez, RN) History of dental surgery History of facial surgery No pertinent past surgical history [place] teeth extracted Family History (Updated 12/26/21 @ 09:57 by Mai Alvarez RN) Father Hypertension Prostate cancer COPD (chronic obstructive pulmonary disease) Asthma Substance abuse Migraine Mother Hypertension Congestive heart failure Substance abuse Pre-diabetes Grandmother Diabetes mellitus Hypertension Family/Other Migraine Grandfather Diabetes mellitus Social History marital status: unmarried,living together number of children: 2 household members: significant other, family (s/o's brother) and children lives independently: Yes housing: house pets and animals: Yes (3 dogs ) education level: vocational occupational status: unemployed current occupational exposures/hazards: No special tomás needs: No travel history: recent (domestic only) seatbelt use: always water heater temp set < 120 deg: Yes working smoke detector in home: Yes fire extinguisher in home: Yes carbon monox detector in home: Yes firearms in home: No do you feel safe at home: Yes Smoking Status: Never smoker second hand exposure: No alcohol intake: never substance use type: marijuana during the past year weight has: remained stable well-balanced diet: daily or most days daily servings fruits/ve-4 caffeine: Yes (Aware of 200mg limit) eating out: rarely or never Type(s) of exercise: none Evaluation Evaluation Baseline heart rate: 130 Variability: Moderate (11-25) monitor accelerations: Present Monitor Decelerations: Absent Contraction Frequency (minutes): 6 Uterine Contraction Intensity: Moderate Category of Tracing: Reactive Status: Category l Cervical dilation (cm): 2 Cervical effacement (%): 75 station: -2 Diagnosis, Plan/Disposition Plan/Disposition Plan: 38 week gestation with contractions but no change in cervix. Patient discharged home to return if her contractions increase in frequency, rupture membranes. OB Disposition: home
== END 2022-08-04 16:50 | disposition home or self-care (01) ==
LOC: LABOR 14:45
PROVIDERS: Admitting Provider Obstetrics & Gynecology; PCP Family Medicine; Referring Provider Specialist; Visit Provider Specialist
DX: O47.1 False labor at or after 37 completed weeks of gestation (principal); Z3A.38 38 weeks gestation of pregnancy
CPT/HCPCS: 59025; G0378; G0379

== ENCOUNTER 2022-08-13 06:48 | Inpatient (IN) | payer OTHER, MEDICAID, SELFPAY ==
--- NOTE | 2022-08-13 07:50 | P.HPOB_ITS ---
OB HPI Date/Time Date of admission: 08/13/22 Date Patient Seen: 08/13/22 Time Patient Seen: 07:50 History of Present Condition Chief complaint: induction GLORIA Calculator Estimated Delivery Date Method Current WG Current Estimate 08/13/22 LMP (Certain) 40w 0d Other Estimates 08/15/22 Ultrasound #1 39w 5d 08/13/22 Ultrasound #2 40w 0d Estimated Gestational Age (weeks): 40 : 4 Para: 3 care: good care, initiated at week # (11), number of visits (12) and pounds weight gain (0) Dating criteria OB: LMP confirmed by 1st trimester US Ultrasounds: normal 1st trimester US and normal mid trimester US Obstetrical complications: none Medical complications OB: none Indications Indication for induction OB: other (AMA) Preadmission Labs Last OB Lab Results: Blood Type B Negative 01/23/22 12:29 Antibody Screen Negative 05/07/22 10:13 Hematocrit 29.8 % (36-46) L 05/07/22 10:13 Hemoglobin 10.0 g/dL (12.0-16.0) L 05/07/22 10:13 Hepatitis B Surface Antigen Negative s/c (NEGATIVE) 01/23/22 12 :29 Hepatitis C Antibody Negative s/c (NEGATIVE) 01/23/22 12:29 Rubella Antibody 7.9 IU/mL (>15) L 01/23/22 12:29 Varicella-Zoster IgG Antibody 1655 index (Immune >165) 01/23/22 12:29 Glucose 1 Hour 128 mg/dL (76-139) 05/07/22 10:13 Group B Streptococcus (PCR) Pos for grp b strep H 07/17/22 09:4 2 -: Chlamydia screen: negative, Gonorrhea screen: negative and Urine: negative Genetic Screens: Cell-free DNA: Normal (Normal male) and Alpha-fetoprotein: Normal External Labs -: Urine: negative Prior (ies) Past Pregnancies Del. Date GA/Weeks Labor Lgth Wt Sex Route Outcome Anesthesia Place Delv Breastfeed Preg Comp Name 05/06/13 41 12 7 lb 4 oz Female vaginal live - full term IH 6 months none Denita 03/28/18 14 Male vaginal still IH fet al anomaly 03/26/19 39 5 7 lb 11 oz Female vaginal live - full term IH 2 weeks other Drea Delivery Date: 03/28/18 Last Updated by: Mai Alvarez RN Missed AB, required induction. Trisomy 18 Delivery Date: 03/26/19 Last Updated by: Mai Alvarez RN retained placenta, required manual extraction Evaluation Evaluation Baseline heart rate: 125 Variability: Moderate (11-25) Monitor Decelerations: Variable Status: Category ll Dilation (cm): 3 Effacement (%): 80 station: -1 [facility] Medical History (Updated 07/15/22 @ 20:45 by Nidhi Nelson MD) 35 weeks gestation of Facet arthropathy, lumbar Hyperemesis gravidarum Migraine with aura Premature uterine contractions Sacral dysfunction Substance abuse Surgical History (Updated 12/26/21 @ 09:53 by Mai Alvarez RN) History of dental surgery History of facial surgery No pertinent past surgical history Lambert teeth extracted Family History (Updated 12/26/21 @ 09:57 by Mai Alvarez RN) Father Hypertension Prostate cancer COPD (chronic obstructive pulmonary disease) Asthma Substance abuse Migraine Mother Hypertension Congestive heart failure Substance abuse Pre-diabetes Grandmother Diabetes mellitus Hypertension Family/Other Migraine Grandfather Diabetes mellitus Social History marital status: unmarried,living together number of children: 2 household members: significant other, family (s/o's brother) and children lives independently: Yes housing: house pets and animals: Yes (3 dogs ) education level: vocational occupational status: unemployed current occupational exposures/hazards: No special tomás needs: No travel history: recent (domestic only) seatbelt use: always water heater temp set < 120 deg: Yes working smoke detector in home: Yes fire extinguisher in home: Yes carbon monox detector in home: Yes firearms in home: No do you feel safe at home: Yes Smoking Status: Never smoker second hand exposure: No alcohol intake: never substance use type: marijuana during the past year weight has: remained stable well-balanced diet: daily or most days daily servings fruits/ve-4 caffeine: Yes (Aware of 200mg limit) eating out: rarely or never Type(s) of exercise: none Meds Home Medications and Allergies Home Medications Medication Instructions Recorded Confirmed Type ALBUTEROL SULFATE (Ventolin / 2 puff INH Q4H PRN PRN Shortness 02/22/09 08/07/22 History Proventil) Of Breath ##0 ondansetron 4 mg disintegrating 4 mg PO Q6H PRN nausea and 12/16/21 08/07/22 Rx tablet vomiting #20 tabs cetirizine 10 mg tablet (Zyrtec) 10 mg PO DAILY PRN 12/26/21 08/07/22 History fluticasone 250 mcg-salmeterol 50 1 inh inhalation BID 12/26/21 08/07/22 History mcg/dose blistr powdr for inhalation (Advair Diskus) prenat.vits,brian,[id number] 1 tab PO DAILY 12/26/21 08/07/22 History sertraline 50 mg tablet 50 mg PO DAILY 12/26/21 08/07/22 History Allergies Allergy/AdvReac Type Severity Reaction Status Date / Time cephalexin [From Keflex] Allergy Intermediate Rash Verified 08/07/22 08:59 OB Exam Narrative Exam Narrative: Generally: Patient lying in bed, no acute distress Lungs: Clear to auscultation bilaterally Cardiovascular: Regular rate and rhythm Fundal height: 40 cm Estimated weight: 7-1/2 lb Extremities: Trace edema Assessment and Plan Assessment and Plan Assessment and Plan narrative: Assessment: 36-year-old 4 para 3 at 40 weeks gestation for induction of labor GBS positive Plan: GBS prophylaxis Pitocin per protocol 2 Artificial rupture of membranes 1 second dose of antibiotics given Expectant management to spontaneous vaginal delivery Time Spent with Patient Total time spent with greater than 50% in coordination of care (as documented) at patient's floor/unit and/or counseling patient:: 15-24 minutes
[2022-08-13 07:56] LABS: Add Manual Diff / Slide Review NO; Basophils Absolute Auto 100 /uL (0-100); Basophils Percent Auto 0.7 % (0-2); Eosinophils Absolute Auto 300 /uL (0-450); Eosinophils Percent Auto 3.1 % (2-4); Hematocrit 33.8 % (36-46); Hemoglobin 11.5 g/dL (12.0-16.0); Lymphocytes Absolute Auto 2200 /uL (1100-4500); Lymphocytes Percent Auto 24.3 % (25-40); Mean Corpuscular HGB Conc 34.1 % (30-36); Mean Corpuscular Hemoglobin 26.8 PG (26-34); Mean Corpuscular Volume 78.6 fL (80-100); Monocytes Absolute Auto 400 /uL (0-900); Monocytes Percent Auto 4.1 % (3-14); Neutrophils Absolute Auto 6200 /uL (1500-7000); Neutrophils Percent Auto 67.8 % (50-75); Platelet Count 146 X10^3/uL (150-400); Red Cell Distribution Width 16.5 % (11.6-14.8); White Blood Cell Count 9.2 X10^3/uL (4.5-11.0)
[2022-08-13] MEDS: AMPICILLIN 2,000 MG in SODIUM CHLORIDE 0.9% 100 ML 200 MG IV (08:16)
[2022-08-13] MEDS: LACTATED RINGERS 1,000 ML 100 ML IV ×2 (08:17→13:21)
[2022-08-13] MEDS: ONDANSETRON 4 MG/2 ML INJ IV (08:17)
[2022-08-13] MEDS: OXYTOCIN PREMIX 30 UNIT/500 ML PLAST..BAG IV (08:27)
[2022-08-13 09:32] VITALS: BP 131/81
[2022-08-13] MEDS: AMPICILLIN 1,000 MG in SODIUM CHLORIDE 0.9% 100 ML 200 MG IV ×2 (11:57→16:02)
--- NOTE | 2022-08-13 12:45 | PM.OBPNLAB ---
Date/Time Date Patient Seen: 08/13/22 Time Patient Seen: 12:45 Pain Control Pain control: tolerating well Pelvic Exam Dilation (cm): 4 Effacement (%): 85 station: -1 Amniotic membrane status: Bulging Contractions Contractions on admission: none Pitocin rate (mU/min): 8 Contraction frequency (min): 3 Contraction duration (min): 1 Contraction pattern: Regular Contraction intensity: Strong/Firm Status status: Category l Heart Rate Baseline: 125 Monitor Accelerations: Present Monitor Decelerations: Absent Monitor Variability: Moderate Assessment and Plan Assessment: active labor and induction ongoing Comments: AROM with copious clear amniotic fluid
[2022-08-13] MEDS: FENT 2MCG/ML BUPIV 0.125% EPI 200 MCG/100 ML PLAST..BAG 8 MCG EPIDURAL (13:21)
--- NOTE | 2022-08-13 13:55 | PM.AN.REGBLK ---
[facility] <Robby Mcfarland, DO - Last Filed: 08/13/22 16:28> Pre-procedure Procedure: Continuous Lumbar Epidural for L&D Attending OB provider: Nidhi Nelson PMH/ROS narrative: term labor, no complications. PMH asthma. ASA Class: II Labs: Hct 33.8 % (36-46) L 08/13/22 07:20 Plt Count 146 X10^3/uL (150-400) L 08/13/22 07:20 Medications: Current Medications Generic Name Dose Route Start Last Admin Trade Name Freq PRN Reason Stop Dose Admin Calcium Carbonate 1,000 mg 08/13/22 07:48 Calcium Carbonate 500 Mg Tab PO Q4HR PRN Dyspepsia Carboprost Tromethamine 250 mcg 08/13/22 07:48 Carboprost 250 Mcg/Ml Ampul IM Q90M PRN Bleeding Diphenhydramine HCl 25 mg 08/13/22 12:25 Diphenhydramine 50 Mg/Ml Vial IV Q10M PRN Pruritis Fentanyl 50 mcg 08/13/22 07:48 Fentanyl 100 Mcg/2 Ml Inj IV Q1H PRN Pain, Moderate (4-6) Oxytocin/Lactated Ringer's 30 unit in 500 mls @ 200 mls/hr 08/13/22 07:48 Oxytocin Premix IV CONT PRN Bleeding Protocol Tranexamic Acid 1,000 mg/ 100 mls @ 200 mls/hr 08/13/22 07:48 Sodium Chloride IV NOW PRN Bleeding Oxytocin/Lactated Ringer's 30 unit in 500 mls @ 2 mls/hr 08/13/22 08:00 08/13/22 08:27 Oxytocin Premix IV 2 milliunit/min TITRATE YOAV 2 mls/hr Administration Protocol 2 MILLIUNIT/MIN Lactated Ringer's 1,000 mls @ 100 mls/hr 08/13/22 08:00 08/13/22 13:21 Lactated Ringers IV 100 mls/hr CONT YOAV Administration Ampicillin Sodium 1,000 mg/ 100 mls @ 200 mls/hr 08/13/22 12:00 08/13/22 11:57 Sodium Chloride IV 200 mls/hr Q4H YOAV Administration FENT 2MCG/ML BUPIV 0.125% EPI 200 mcg in 100 mls @ 6 mls/hr 08/13/22 12:30 08/13/22 13:21 Fentanyl/Bupiv/Ns 2mcg/Ml - 0.125% EPIDURAL 8 mls/hr CONT YOAV Administration Lidocaine HCl 20 ml 08/13/22 07:48 Lidocaine 1% 20 Ml INJ INTRA-OP PRN Post Delivery Methylergonovine Maleate 0.2 mg 08/13/22 07:48 Methylergonovine 0.2 Mg Tablet PO Q6HR PRN Heavy Bleeding Methylergonovine Maleate 0.2 mg 08/13/22 07:48 Methylergonovine 0.2 Mg/Ml Vial IM NOW PRN Bleeding Misoprostol 800 mcg 08/13/22 07:48 Misoprostol 200 Mcg Tablet AZ NOW PRN Bleeding Misoprostol 400 mcg 08/13/22 07:48 Misoprostol 200 Mcg Tablet SL NOW PRN Bleeding Nalbuphine HCl 2.5 mg 08/13/22 12:25 Nalbuphine 20 Mg/Ml Ampul IV Q10M PRN Pruritis Naloxone HCl 0.2 mg 08/13/22 07:48 Naloxone 0.4 Mg/Ml Vial IV Q2MIN PRN Opiate Reversal Ondansetron HCl 4 mg 08/13/22 07:48 08/13/22 08:17 Ondansetron 4 Mg/2 Ml Inj IV 4 mg Q4HR PRN Administration Nausea And Vomiting Oxytocin 10 unit 08/13/22 07:48 Oxytocin 10 Unit/Ml Vial IM NOW PRN Bleeding Allergies: Allergies Allergy/AdvReac Type Severity Reaction Status Date / Time cephalexin [From Keflex] Allergy Intermediate Rash Verified 08/07/22 08:59 Procedure Insertion date: 08/13/22 Insertion time: 12:43 Prep/Local: betadine x3 and 1% lidocaine Interspace: L3-4 Patient position: sitting Needle: 18 gauge Chess[place] (CSE: 27g Pencan through Hustead. Clear CSF, 2.5mg MPF bupiv) Loss of resistance with: saline NIELS at (cm): 6 Catheter placed at SKIN (cm): 12 Catheter in SPACE (cm): 6 Insertion: No CSF, No Blood, No Paresthesia with insertion, No Paresthesia with injection and No Test dose reaction Initial Medications TEST DOSE time: 12:46 BOLUS DOSE time: 12:51 BOLUS DOSE (mL): 5 BOLUS DOSE med: other (infusate) Infusion Initial rate (mL/hr): 8 Subsequent interventions: PCEA 8/5@15min lockout. Post-procedure Anesthesia time START: 12:35 <Ty Messina MD - Last Filed: 08/14/22 00:48> Post-procedure Anesthesia time END: 18:28 Post-procedure Anesthesia Assessment: Yes CV function: HR/BP stable, Yes Resp function: RR/sat/airway adequate, Yes Post-op hydration adequate, Yes Pain control adequate, Yes Nausea & vomiting absent, Yes Temperature > 36 C, Yes Mental status appropriate and Yes Anesthesia complications
[2022-08-13 15:00] VITALS: BP 126/72; PULSE 87; RESP 16; TEMP 36.8
[2022-08-13] MEDS: FENT 2MCG/ML BUPIV 0.125% EPI 200 MCG/100 ML PLAST..BAG 10 MCG EPIDURAL (17:32)
--- NOTE | 2022-08-13 19:24 | PM.OBPRVD ---
Events: Labor Induction Labor & Delivery Delivery date: 08/13/22 Cervical ripening method: none Induction method: per pitocin protocol Delivery augmentation: rupture of membranes Delivery monitor: external FHT and external uterine Route of delivery: Episiotomy description: None L&D Laceration Description: Perineal - 2nd Degree and Vaginal - 2nd Degree Delivery repair: vicryl and chromic Quantitative Blood Loss: 800 Anesthesia Type: Epidural Complications: Partially retained placenta Narrative: Patient complete and pushed with 1 contraction. At 6:33 p.m., a live male infant delivered spontaneously in the CARMEN presentation, over an intact perineum. A nuchal cord x3 was reduced on the perineum. The remainder of the body delivered without difficulty and was placed on mom's abdomen. Pitocin was given in the IV fluids, at a rate of 220 cc/hour. After the cord stopped pulsing, the cord was double clamped and cut. Cord bloods were obtained. Part of the placenta initially delivered fairly quickly, and then part of it had to be manually removed. The fundus was firm. A second-degree vaginal/perineal laceration was repaired in the usual fashion. Hemostasis was achieved. QBL 800 cc. Apgars 7 at 1 minute and 9 at 5 minutes. Epidural analgesia. . Mom and infant stable to recovery. Baby 1: gender: Male Presentation: vertex Position: Left Occiput Anterior Placenta delivery description: Manual Removal (partial) Cord Vessel Description: 3 Vessels, Nuchal Cord (x3) and Clamped/Cut (after cord stopped pulsing) score (1 min): 7 score (5 min): 9 weight: 7 lb 5.1 oz Plan for aftercare: Routine care
[2022-08-13 20:47] LABS: Hematocrit 29.4 % (36-46); Hemoglobin 9.8 g/dL (12.0-16.0)
[2022-08-13] MEDS: ACETAMINOPHEN 325 MG TABLET 650 MG PO (22:05)
[2022-08-13] MEDS: IBUPROFEN 600 MG TABLET PO (22:06)
[2022-08-14] MEDS: IBUPROFEN 600 MG TABLET PO ×2 (04:05→10:31)
[2022-08-14] MEDS: DERMOPLAST SPRAY 20% 60 ML 1 SPRAY TOP (04:06)
[2022-08-14] MEDS: ACETAMINOPHEN 325 MG TABLET 650 MG PO ×2 (04:06→10:30)
[2022-08-14 06:34] LABS: Hematocrit 27.1 % (36-46); Hemoglobin 9.1 g/dL (12.0-16.0)
[2022-08-14] MEDS: DOCUSATE 100 MG CAPSULE PO (09:17)
[2022-08-14] MEDS: SERTRALINE 50 MG TABLET PO (09:17)
[2022-08-14] MEDS: PRENATAL VIT,CALC/IRON/FOLIC 1 TABLET 1 TAB PO (09:17)
[2022-08-14] MEDS: RHO(D) IMMUNE GLOBULIN 1,500 UNIT SYRINGE 1500 UNIT IM (09:18)
[2022-08-14] MEDS: MEASLES,MUMPS,RUBELLA VACC/PF 0.5 ML VIAL SUBCUT (16:59)
== END 2022-08-14 18:02 | disposition home or self-care (01) | DRG 560 ==
PROVIDERS: Admitting Provider Obstetrics & Gynecology; PCP Family Medicine; Referring Provider Obstetrics & Gynecology; Visit Provider Obstetrics & Gynecology
DX: O99.824 Streptococcus B carrier state complicating childbirth (principal); Z3A.40 40 weeks gestation of pregnancy; Z37.0 Single live birth; O70.1 Second degree perineal laceration during delivery
CPT/HCPCS: 36415; 59050; 59409; 85014; 85018; 85025; 86850; 86870; 86900; 86901; G0379; J0290; J2405; J2590; J2790

== ENCOUNTER → 2024-06-26 11:27 | Outpatient (CLI) | payer OTHER, SELFPAY ==
--- NOTE | 2024-06-26 11:29 | DI.RAD.S_ITS ---
PROCEDURE: XR CHEST 2V INDICATIONS: Acute respiratory distress TECHNIQUE: 2 views of the chest were acquired. COMPARISON: [facility], CR, XR CHEST 2V, 06/10/2018, 10:03. FINDINGS: Surgical changes and devices: None. Lungs and pleura: Lungs are clear. No pleural effusions or pneumothorax. Mediastinum: Mediastinal contours are normal. Heart size is normal. Bones and chest wall: No suspicious bony abnormalities. Soft tissues appear unremarkable. IMPRESSION: No acute cardiopulmonary abnormality is seen. Dictated by: Baldev Murray M.D. on 06/27/2024 at 1:04 Approved by: Baldev Murray M.D. on 06/27/2024 at 1:05
== END ==
PROVIDERS: PCP Family Medicine; Referring Provider Family Medicine; Visit Provider Family Medicine
DX: R06.03 Acute respiratory distress (principal); R50.9 Fever, unspecified; R05.9 Cough, unspecified
CPT/HCPCS: 0241U; 71046

== ENCOUNTER → 2024-06-26 11:48 | Outpatient (ROUT) | payer OTHER, SELFPAY ==
[2024-06-26 12:33] LABS: Influenza A - CEPHEID Flu A NEGATIVE (NEGATIVE); Influenza B - CEPHEID Flu B POSITIVE (NEGATIVE); Respiratory Syncytial Virus Negative (Negative)
[2024-06-26 12:41] LABS: COVID-19 CEPHEID 4-PLEX PCR Negative (Negative)
== END ==
PROVIDERS: PCP Family Medicine; Visit Provider Family Medicine
DX: R50.9 Fever, unspecified (principal); R05.9 Cough, unspecified
CPT/HCPCS: 0241U

== ENCOUNTER → 2024-12-14 18:40 | Outpatient (CLI) | payer OTHER, SELFPAY ==
--- NOTE | 2024-12-14 18:41 | DI.MRI.S_ITS ---
PROCEDURE: MR CERVICAL SPINE WO CON INDICATIONS: acute neurologic changes TECHNIQUE: Noncontrast sagittal T1 spin echo and T2 fast spin echo, sagittal STIR, foraminal oblique sagittal T2 fast spin echo, and axial gradient echo or T2 fast spin echo through the cervical spine. COMPARISON: [facility], CR, XR CERVICAL SPINE 2V OR 3V, 12/09/2024, 13:19. FINDINGS: Image quality: Excellent. Alignment and Curvature: There is normal bony alignment. There is focal C5-C6 kyphosis. Bone Marrow: Minimal Modic type 2 reactive endplate changes adjacent to the C5- C6 disc.. Spinal Cord: Visualized spinal cord has normal size and signal. No cerebellar tonsillar herniation. Paraspinous Soft Tissues: No paravertebral masses. Prevertebral soft tissues are normal in thickness. C2-C3: Slight loss of disc signal. No central stenosis. No neural foraminal narrowing. No neural compression. C3-C4: Loss of disc signal. Mild, diffuse disc bulge. Small left central/left foraminal disc protrusion. Moderate left facet hypertrophy. No central stenosis. Severe left neural foraminal narrowing with compression of the left C4 nerve root. C4-C5: Loss of disc signal. Mild, diffuse disc bulge. No central stenosis. No neural foraminal narrowing. No neural compression. C5-C6: Loss of disc signal and height. Moderate, diffuse disc bulge. Moderate right and severe left uncovertebral hypertrophy. Mild narrowing of the central canal. Severe bilateral neural foraminal narrowing with compression of the C6 nerve roots C6-C7: Loss of disc signal. Mild, diffuse disc bulge. No central stenosis. No neural foraminal narrowing. No neural compression C7-T1: Normal appearance. IMPRESSION: Multilevel degenerative disc disease. Moderate left C3-C4 facet arthropathy. Moderate right and severe left C5-C6 uncovertebral arthropathy. No severe central canal stenosis. Severe left C3-C4 and bilateral C5-C6 neural foraminal stenosis with compression of the left C4 and bilateral C6 nerve roots. Dictated by: Leslye Suárez MD, PhD on 12/15/2024 at 9:56 Approved by: Leslye Suárez MD, PhD on 12/15/2024 at 10:19
== END ==
LOC: MRI 18:40
PROVIDERS: PCP Family Medicine; Referring Provider Orthopaedic Surgery; Visit Provider Orthopaedic Surgery
DX: M47.22 Other spondylosis with radiculopathy, cervical region (principal); M50.11 Cervical disc disorder with radiculopathy, high cervical region; M48.02 Spinal stenosis, cervical region
CPT/HCPCS: 72141

== ENCOUNTER → 2025-03-10 11:10 | Outpatient (CLI) | payer OTHER, SELFPAY ==
--- NOTE | 2025-03-10 11:12 | DI.RAD.S_ITS ---
PROCEDURE: XR ANKLE RT MIN 3V INDICATIONS: R ANKLE PAIN TECHNIQUE: 3 views of the ankle were acquired. COMPARISON: None. FINDINGS: Bones: No fractures or dislocations. Ankle mortise is normally aligned. No suspicious bony lesions. Soft tissues: No tibiotalar joint effusion. Achilles tendon appears normal. IMPRESSION: No acute bony abnormality or significant effusion. Approved by: Donis Henry M.D. on 03/11/2025 at 15:26
== END ==
PROVIDERS: PCP Family Medicine; Referring Provider Family Medicine; Visit Provider Family Medicine
DX: M25.571 Pain in right ankle and joints of right foot (principal)
CPT/HCPCS: 73610